=== PATIENT | male | born 1970 ===

== ENCOUNTER 2024-11-30 14:07 | Inpatient (IN) | payer MEDICAID, OTHER ==
[~2024-11-30] VITALS: Ht 180.3 cm; Wt 92.0 kg
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
[2024-11-30 15:00] LABS: Basophils # (auto) 0.1 10 ^3/uL (0-0.2); Eosinophils # (auto) 0.1 10 ^3/uL (0-0.8); Monocytes # (auto) 0.6 10 ^3/uL (0-1.3)
[2024-11-30 15:01] LABS: Basophils % (auto) 1.2 % (0.0-2.0); Eosinophils % (auto) 0.8 % (0.0-7.0); Hematocrit 41.2 % (41.0-53.0); Hemoglobin 13.3 g/dL (13.5-17.5); Lymphocytes # (auto) 0.9 10 ^3/uL (0.4-5.4); Lymphocytes % (auto) 12.3 % (10.0-50.0); Mean Corpuscular Hgb Conc. 32.4 g/dL (32.0-36.0); Mean Corpuscular Volume 77.2 fL (80.0-100.0); Monocytes % (auto) 7.9 % (0.0-12.0); Neutrophils # (auto) 5.9 10 ^3/uL (1.6-8.6); Neutrophils % (auto) 77.8 % (37.0-80.0); Nucleated Red Blood Cells % 0.1 %; Platelet Count (auto) 427 10^3/uL (140-450); Red Blood Cells 5.34 10^6/uL (4.5-5.90); Red Cell Distribution Width 17.6 % (11.8-14.3); White Blood Cell 7.5 10^3/uL (4.4-10.8)
[2024-11-30 15:02] VITALS: PULSE 79; RESP 20; O2SAT 99
[2024-11-30 15:11] LABS: Chloride 104 mmol/L (98-107); Sodium 137 mmol/L (136-145)
[2024-11-30 15:12] LABS: Anion Gap 13 (5-15)
[2024-11-30 15:13] LABS: Calcium 9.3 mg/dL (8.7-10.4)
[2024-11-30] MEDS: ONDANSETRON HCL 4 MG/2 ML VIAL IV ONE (15:16)
[2024-11-30] MEDS: SODIUM CHLORIDE 0.9% 1,000 ML IV ONE (15:16)
[2024-11-30 15:17] LABS: BUN/Creatinine Ratio 8.6 (10.0-20.0); Blood Urea Nitrogen 13 mg/dL (9-23)
--- NOTE | 2024-11-30 15:17 | ECG ---
[facility] Test Date: 2024-11-30 Test Time: 14:28:59 Pat Name: NILESH CORRALES Department: ED Room: [address] [place] [address] Gender: M Technical Recruiter: arcelia : 1970 Requested By: EMERGENCY EMERGENCY Order Number: [id number] Reading MD: Harrison Peterson Measurements Intervals [place] Rate: 89 P: 79 [place]: 146 QRS: 76 QRSD: 100 T: -19 QT: 350 QTc: 426 Interpretive Statements Sinus rhythm Borderline repolarization abnormality Electronically Signed On 12-02-2024 14:04:18 PDT by Harrison Peterson Please click the below link to view image of tracing.
[2024-11-30 15:19] LABS: Carbon Dioxide 20 mmol/L (20-31); Glucose 152 mg/dL (74-106)
--- NOTE | 2024-11-30 15:26 | DVH ---
EXAM: CT HEAD WITHOUT CONTRAST HISTORY: seizure COMPARISON: None TECHNIQUE: Noncontrast axial CT images of the head were performed. Sagittal and coronal reformatted i mages were obtained. This CT exam was performed using 1 or more of the following dose reduction techn iques: Automated exposure control, adjustment of the mA and/or kv according to patient size, or the u se of iterative reconstruction techniques. Radiation Dose: CTDI volume is 60.41 mGy. Dose-length product is 1188.76 mGy*cm FINDINGS: No intracranial hemorrhage, mass, midline shift, hydrocephalus, or evidence of acute large vessel inf arct. The partially-visualized paranasal sinuses are clear. The bilateral mastoid air cells and middl e ear spaces are clear. There are old fractures about the left facial bones, with postoperative acosta es fixation of the left orbital floor and left lateral orbit. Probable old bilateral nasal bone fract ures. The nasal septum is deviated to the right. No cranial fracture or scalp edema. IMPRESSION: 1. No acute intracranial process. 2. Old facial bone fractures and old postoperative changes left facial bone fixation.
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
[2024-11-30] MEDS: LORazepam 2MG/ML-1ML VIAL IV ONE (18:26)
[2024-11-30] MEDS: levETIRAcetam 1000 mg/100ml 200 ML IV ONE (18:26)
--- NOTE | 2024-11-30 18:39 | DVH ---
CHEST RADIOGRAPH Indication: seizure vs syncope Technique: Single frontal view of the chest was obtained Comparison: None FINDINGS: Lines and Tubes: None Lungs: No focal consolidation. Pleura: No effusion. No pneumothorax. Cardiomediastinal contours: Unremarkable Bones: No acute osseous abnormality. IMPRESSION: No acute cardiopulmonary disease.
[2024-11-30] MEDS ORDERED: ONDANSETRON HCL 4 MG/2 ML VIAL IV PRN (19:30)
[2024-11-30 20:18] LABS: Urine Bacteria None Seen /hpf (None Seen)
[2024-11-30 20:31] LABS: Urine Blood TRACE /uL (Negative); Urine Clarity Clear (Clear); Urine Color Light-Yellow (Yellow); Urine Mucus FEW (None Seen); Urine Protein, UAD 1+ (Negative); Urine Squamous Epithelial Cell FEW /hpf (<5); Urine Urobilinogen Normal (Negative); Urine WBC 4 /HPF (0-3)
[2024-11-30 21:09] LABS: Barbiturate Scree,Urine Neg (NEGATIVE); Benzodiazephine Screen, Urine Neg (NEGATIVE); Cannabinoid Screen, Urine Neg (NEGATIVE); Cocaine Screen, Urine Neg (NEGATIVE); Opiate Scree,Urine Neg (NEGATIVE); Phencyclidine Screen, Urine Neg (NEGATIVE)
[2024-11-30 21:10] LABS: Amphetamine Screen, Urine Neg (NEGATIVE)
[2024-11-30] MEDS: TAMSULOSIN HYDROCHLORIDE 0.4 MG CAP PO SCH (21:37)
[2024-11-30] MEDS: HYDROcodone-ACET 5/325MG TAB PO ONE (21:37)
[2024-11-30 22:52] VITALS: BP 145/89; PULSE 79; RESP 18; TEMP 97.8; O2SAT 97
[2024-11-30 23:15] VITALS: PULSE 79; RESP 18; O2SAT 97
--- NOTE | 2024-11-30 23:15 | DVHHP2 ---
History of Present Illness Reason for Visit: Seizure History of Present Illness 54-year-old male presents for evaluation of seizure activity. Patient is is at the bedside. She reports patient having a witnessed seizure lasting approximately 5-10 minutes. She reports patient biting his tongue and then his eyes rolled back. Patient is currently alert and oriented. He has been complaining of a headache for the past three days. Denies chest pain or palpitations. No other acute complaints. Past Medical History Hypertension and BPH Past Surgical History None Family History Noncontributory Smoke: No ALCOHOL: none Drugs: None Lives: with Family Review of Systems Review of Systems Review of systems are currently negative otherwise addressed in HPI. Allergies: Coded Allergies: NO KNOWN ALLERGIES (Unverified , 11/30/24) Medications Current Medications Medications Dose Ordered Sig/Tanya Route Start Time Stop Time Status Last Admin Dose Admin Losartan Potassium 50 mg DAILY PO 12/01/24 10:00 Tamsulosin HCl 0.4 mg QPM PO 11/30/24 19:42 11/30/24 21:37 0.4 MG Ondansetron HCl 4 mg Q4HP PRN IV 11/30/24 19:30 Acetaminophen 650 mg Q6HP PRN PO 11/30/24 19:30 Lorazepam 1 mg Q5MINP PRN IV 11/30/24 20:00 Exam Vital Signs Vital Signs Date Time Temp Pulse Resp B/P (MAP) Pulse Ox O2 Delivery O2 Flow Rate FiO2 11/30/24 22:00 79 13 134/80 (98) 100 11/30/24 19:20 98.9 98.9 11/30/24 15:02 Room Air* 0 21 Exam Gen: 54-year-old male in no apparent distress. Skin: Warm, dry, normal color and texture, no rash. HEENT: Normocephalic atraumatic, mucous membranes moist and pink. Neck: Cervical and supraclavicular nodes normal without enlargement, trachea is midline, thyroid gland is normal without masses. Pulmonary: Clear to auscultation and percussion bilaterally. Cardiac: Regular rate and rhythm. No murmur Abdomen: Soft, nontender, nondistended, bowel sounds present all 4 quadrants, no guarding, no rigidity, no organomegaly. Extremities: No cyanosis, clubbing, no edema Neuro: Cranial nerves II through XII grossly intact, normal affect and speech, no focal motor deficits. Labs/Xrays ORDERING PHYSICIAN: ROXANNE MORILLO MD PROCEDURE(s): HWOCT - HEAD WITHOUT CONTRAST REASON: seizure ORDER NUMBER(s): [id number], ACCESSION NUMBER(s): [id number] EXAM: CT HEAD WITHOUT CONTRAST HISTORY: seizure COMPARISON: None TECHNIQUE: Noncontrast axial CT images of the head were performed. Sagittal and coronal reformatted images were obtained. This CT exam was performed using 1 or more of the following dose reduction techniques: Automated exposure control, adjustment of the mA and/or kv according to patient size, or the use of iterative reconstruction techniques. Radiation Dose: CTDI volume is 60.41 mGy. Dose-length product is 1188.76 mGy*cm FINDINGS: No intracranial hemorrhage, mass, midline shift, hydrocephalus, or evidence of acute large vessel infarct. The partially-visualized paranasal sinuses are clear. The bilateral mastoid air cells and middle ear spaces are clear. There are old fractures about the left facial bones, with postoperative changes fixation of the left orbital floor and left lateral orbit. Probable old bilateral nasal bone fractures. The nasal septum is deviated to the right. No cranial fracture or scalp edema. IMPRESSION: 1. No acute intracranial process. 2. Old facial bone fractures and old postoperative changes left facial bone fix ation. RING PHYSICIAN: NICOLAS CASTRO MD PROCEDURE(s): CXRP - CHEST PORTABLE REASON: seizure vs syncope ORDER NUMBER(s): [id number], ACCESSION NUMBER(s): [id number] CHEST RADIOGRAPH Indication: seizure vs syncope Technique: Single frontal view of the chest was obtained Comparison: None FINDINGS: Lines and Tubes: None Lungs: No focal consolidation. Pleura: No effusion. No pneumothorax. Cardiomediastinal contours: Unremarkable Bones: No acute osseous abnormality. IMPRESSION: No acute cardiopulmonary disease. Labs Test 11/30/24 20:11 11/30/24 14:49 Range/Units Urine Color Light-yellow Yellow Urine Clarity Clear Clear Urine pH 6.0 5.0-9.0 Urine Specific [place] 1.020 1.001-1.035 Urine Protein 1+ H Negative Urine Ketones Trace Negative Urine Blood Trace H Negative /uL Urine Nitrite Negative Negative Urine Bilirubin Negative Negative Urine Urobilinogen Normal Negative mg/dL Urine Leukocyte Esterase Negative Negative /uL Urine RBC 1 0 - 3 /hpf Urine Microscopic WBC 4 H 0-3 /HPF Urine Squamous Epithelial Cells Few <5 /hpf Urine Bacteria None seen None Seen /hpf Urine Mucus Few None Seen Urine Glucose Normal Normal mg/dL Urine Opiates Screen Neg NEGATIVE Urine Fentanyl Screen Neg NEGATIVE Urine Barbiturates Screen Neg NEGATIVE Urine Phencyclidine Screen Neg NEGATIVE Urine Amphetamines Screen Neg NEGATIVE Urine Benzodiazepines Screen Neg NEGATIVE Urine Cocaine Screen Neg NEGATIVE Urine Cannabinoids Screen Neg NEGATIVE White Blood Count 7.5 4.4-10.8 10^3/uL Red Blood Count 5.34 4.5-5.90 10^6/uL Hemoglobin 13.3 L 13.5-17.5 g/dL Hematocrit 41.2 41.0-53.0 % Mean Corpuscular Volume 77.2 L 80.0-100.0 fL Mean Corpuscular Hemoglobin 25.0 L 28.0-32.0 pg Mean Corpuscular Hemoglobin Concent 32.4 32.0-36.0 g/dL Red Cell Distribution Width 17.6 H 11.8-14.3 % Platelet Count 427 140-450 10^3/uL Mean Platelet Volume 6.9 6.9-10.8 fL Neutrophils (%) (Auto) 77.8 37.0-80.0 % Lymphocytes (%) (Auto) 12.3 10.0-50.0 % Monocytes (%) (Auto) 7.9 0.0-12.0 % Eosinophils (%) (Auto) 0.8 0.0-7.0 % Basophils (%) (Auto) 1.2 0.0-2.0 % Neutrophils # (Auto) 5.9 1.6-8.6 10 ^3/uL Lymphocytes # (Auto) 0.9 0.4-5.4 10 ^3/uL Monocytes # (Auto) 0.6 0-1.3 10 ^3/uL Eosinophils # (Auto) 0.1 0-0.8 10 ^3/uL Basophils # (Auto) 0.1 0-0.2 10 ^3/uL Nucleated Red Blood Cells 0.1 % Sodium Level 137 136-145 mmol/L Potassium Level 4.0 3.5-5.1 mmol/L Chloride Level 104 98-107 mmol/L Carbon Dioxide Level 20 20-31 mmol/L Anion Gap 13 5-15 Blood Urea Nitrogen 13 9-23 mg/dL Creatinine 1.51 H 0.700-1.30 mg/dL Glomerular Filtration Rate Calc 55 >90 mL/min BUN/Creatinine Ratio 8.6 L 10.0-20.0 Serum Glucose 152 H 74-106 mg/dL Calcium Level 9.3 8.7-10.4 mg/dL Troponin I High Sensitivity 19 </=54 ng/L Thyroid Stimulating Hormone (TSH) 2.11 0.55-4.78 uIU/mL Assessment/Plan Assessment/Plan Assessment Seizure activity, new onset Acute kidney injury Hypertension Plan Admit the patient to [facility] to the hospitalist Nephrology consultation Seizure precautions Resume home medications Continue treatment per orders. Plan discussed with: Patient My Orders Orders - DELORES TEE Procedure Category Date Status Time * Neurology Consult CONS 11/30/24 Transmitted 19:30 Seizure Precautions ZANDER 11/30/[address] 19:30 Losartan Tablet PHA 12/01/24 In Process (Cozaar Tablet) 10:00 Basic Metabolic Panel LAB 12/01/24 Logged 04:00 Admit ADMIT 11/30/24 Transmitted 19:30 Ondansetron Hcl PHA 11/30/24 In Process (Zofran) 19:30 Condition: Stable ZANDER 11/30/24 In Process 19:30 Acetaminophen Tablet PHA 11/30/24 In Process (Tylenol Tablet) 19:30 Bedrest With Bathroom ZANDER 11/30/24 In Process Privileg 19:30 Tamsulosin PHA 11/30/24 In Process Hydrochloride (Flomax) 19:42 Lorazepam 2mg/Ml Inj PHA 11/30/24 In Process (Ativan Inj) 20:00 Date of Service: Nov 30, 2024 Billing Provider: DELORES TEE Common Visit Codes: [id number] INP/OBS CARE (HIGH) DELORES TEE Nov 30, 2024 23:15
[2024-11-30] MEDS ORDERED: FAMO40TA7 PO (23:35)
[2024-11-30] MEDS ORDERED: [UNRECOGNIZED DRUG - CODE] TOP (23:35)
[2024-11-30] MEDS ORDERED: NORT10CA PO (23:35)
[2024-11-30] MEDS ORDERED: PANT40T PO (23:35)
[2024-11-30] MEDS ORDERED: LOSA-534 PO (23:35)
[2024-12-01] VITALS (42 sets, daily range): BP systolic 81–226; BP diastolic 48–164; PULSE 61–132; RESP 17–32; TEMP 97.5–98.6; O2SAT 96–100
[2024-12-01] MEDS: ACETAMINOPHEN 325 MG TAB PO PRN (04:30)
[2024-12-01 07:21] LABS: Chloride 103 mmol/L (98-107); Potassium 3.7 mmol/L (3.5-5.1); Sodium 139 mmol/L (136-145)
[2024-12-01 07:22] LABS: Anion Gap 10 (5-15); Calcium 9.2 mg/dL (8.7-10.4); Carbon Dioxide 26 mmol/L (20-31)
[2024-12-01 07:27] LABS: Glucose 77 mg/dL (74-106)
[2024-12-01 07:57] LABS: BUN/Creatinine Ratio 7.6 (10.0-20.0)
[2024-12-01] MEDS: LOSARTAN POTASSIUM 50 MG TAB PO SCH (07:57)
[2024-12-01 08:04] LABS: Blood Urea Nitrogen 10 mg/dL (9-23)
--- NOTE | 2024-12-01 09:28 | DVH ---
EXAMINATION: MRI BRAIN HEAD WO CONTRAST INDICATION: seizure COMPARISON: CT scan of the head dated 11/30/2024 TECHNIQUE: Multiplanar, multisequence magnetic resonance imaging of the brain was performed without the use of i ntravenous contrast. FINDINGS: No evidence of acute or remote infarct. No intracranial hemorrhage. No mass effect. There is periventricular/deep white matter T2/FLAIR hyperintensity is nonspecific, but most commonly associated with chronic microvascular disease. The ventricles and sulci are normal in size for age. Clear basal cisterns. Flow voids in the major intracranial vessels are maintained. No abnormality of the orbits. Paranasal sinuses and mastoid air cells are clear. No abnormality of the visualized osseous structures and extracranial soft tissues. IMPRESSION: 1. No acute infarct, intracranial hemorrhage, mass effect, or hydrocephalus.
[2024-12-01] MEDS ORDERED: HYDROcodone-ACET 10/325MG TAB PO PRN (11:30)
[2024-12-01] MEDS ORDERED: CHLO50TA PO (12:20)
[2024-12-01] MEDS ORDERED: TAMS0.4C39 PO (12:21)
[2024-12-01] MEDS: HYDROcodone-ACET 10/325MG TAB PO PRN (12:38)
[2024-12-01] MEDS: LORazepam 2MG/ML-1ML VIAL IV PRN (14:20)
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
--- NOTE | 2024-12-01 14:53 | DVH ---
EXAM: CT STROKE CTH INDICATION: sezuire TECHNIQUE: CT of the head without intravenous contrast. Radiation Dose Information: CT Dose: CTDI volume is 68.59 mGy. Dose-length product is 1351.29 mGy*cm The dose indicators for CT are the volume Computed Tomography (CT) Dose Index (CTDIvol) and the Dose Length Product (DLP), and are measured in units of mGy and mGy-cm, respectively. These indicators are not patient dose, but values generated from the CT scanner acquisition factors. The report includes radiation exposure data for exposures received during this examination. COMPARISON: CT HEAD WITHOUT CONTRAST on DOS: 11/30/24 FINDINGS: There is no evidence of acute intracranial hemorrhage, extra-axial collection, mass effect, midline s hift, herniation or hydrocephalus. The ventricles, sulci and cisterns are age appropriate. The nguyen-white differentiation is intact. Patchy periventricular and subcortical white matter hypoattenuation is nonspecific but may be related to small vessel ischemic disease. The visualized paranasal sinuses and mastoid air cells are clear. The surrounding soft tissues and osseous structures are unremarkable. IMPRESSION: No acute intracranial abnormality.
[2024-12-01 15:04] LABS: Basophils # (auto) 0.1 10 ^3/uL (0-0.2); Eosinophils # (auto) 0.1 10 ^3/uL (0-0.8); Eosinophils % (auto) 0.8 % (0.0-7.0); Hematocrit 40.7 % (41.0-53.0); Hemoglobin 12.9 g/dL (13.5-17.5); Lymphocytes # (auto) 0.9 10 ^3/uL (0.4-5.4); Lymphocytes % (auto) 13.1 % (10.0-50.0); Mean Corpuscular Hemoglobin 24.9 pg (28.0-32.0); Mean Corpuscular Hgb Conc. 31.6 g/dL (32.0-36.0); Mean Corpuscular Volume 78.8 fL (80.0-100.0); Monocytes # (auto) 0.7 10 ^3/uL (0-1.3); Monocytes % (auto) 9.6 % (0.0-12.0); Neutrophils # (auto) 5.4 10 ^3/uL (1.6-8.6); Neutrophils % (auto) 75.5 % (37.0-80.0); Nucleated Red Blood Cells % 0.1 %; Platelet Count (auto) 387 10^3/uL (140-450); Red Blood Cells 5.17 10^6/uL (4.5-5.90); Red Cell Distribution Width 17.8 % (11.8-14.3); White Blood Cell 7.2 10^3/uL (4.4-10.8)
[2024-12-01] MEDS: IOHEXOL 350 MG/ML 100ML IJ ONE ×2 (15:08→17:48)
[2024-12-01 15:13] LABS: Chloride 104 mmol/L (98-107); Potassium 3.9 mmol/L (3.5-5.1); Sodium 138 mmol/L (136-145)
[2024-12-01 15:14] LABS: Anion Gap 16 (5-15)
[2024-12-01 15:15] LABS: Calcium 9.4 mg/dL (8.7-10.4)
[2024-12-01] MEDS ORDERED: levETIRAcetam 500 mg/100ml 100 ML IV ONE (15:15)
[2024-12-01 15:18] LABS: INR 1.01 (0.9-1.15); Prothrombin Time 10.7 sec (9.3-11.8)
[2024-12-01 15:19] LABS: BUN/Creatinine Ratio 7.2 (10.0-20.0); Blood Urea Nitrogen 11 mg/dL (9-23)
[2024-12-01 15:25] LABS: Carbon Dioxide 18 mmol/L (20-31); Glucose 119 mg/dL (74-106)
[2024-12-01] MEDS: fentaNYL Drip 2500mCg/250mlNS 250 ML IV SCH (15:26)
[2024-12-01] MEDS: fentaNYL Drip 2500mCg/250mlNS 250 ML IV ONE (15:26)
[2024-12-01] MEDS: MIDAZOLAM DRIP 50 mg/50mL 50 ML IV SCH (15:27)
[2024-12-01] MEDS: MIDAZOLAM DRIP 50 mg/50mL 50 ML IV ONE (15:27)
[2024-12-01] MEDS: ETOMIDATE (2MG/ML) 20ML VIAL IV ONE (15:33)
[2024-12-01] MEDS: ROCURONIUM 10MG/ML 10ML VIAL IV ONE (15:34)
[2024-12-01] MEDS: levETIRAcetam 1000 mg/100ml 100 ML IV ONE ×2 (15:41→15:56)
[2024-12-01] MEDS: PROPOFOL 100 ML IV SCH (16:37)
[2024-12-01] MEDS: PROPOFOL 100 ML IV ONE (16:37)
--- NOTE | 2024-12-01 17:49 | DVH ---
EXAM: XR Chest, 1 View CLINICAL INDICATION: INTUBATED AND CENTRAL LINE PLACEMENT TECHNIQUE: Frontal view of the chest. COMPARISON: XY CHEST PORTABLE on DOS: 11/30/24 FINDINGS: LUNGS AND PLEURAL SPACES: Pulmonary venous congestion. No consolidation. No pneumothorax. HEART: Unremarkable. No cardiomegaly. MEDIASTINUM: Unremarkable. Normal mediastinal contour. BONES/JOINTS: Unremarkable. No acute fracture. TUBES, LINES AND DEVICES: The endotracheal tube (ETT) is in satisfactory position. Right internal jugular central venous catheter tip in the superior vena cava. Enteric tube tip in the stomach. OTHER FINDINGS: . .. IMPRESSION: Pulmonary venous congestion.
[2024-12-01 17:58] LABS: Urine Bacteria None Seen /hpf (None Seen)
--- NOTE | 2024-12-01 18:01 | DVHSR ---
APPROVED REPORT EXAM: Two-dimensional and M-mode echocardiogram with Doppler and color Doppler. Blood Pressure: 133/73 mmHg INDICATION Evaluate cardiac function RISK FACTORS Height: 6'0", Weight: 220 DIMENSIONS LVDd4.6 (3.8-5.7cm)LA (2D)3.1 (1.9-4.0cm)Aortic Root3.7 (2.0-3.7cm) LVDs3.1 (2.5-4.0cm)LA (MM) (1.9-4.0cm)Aortic Cusp Exc2.0 (1.5-2.0cm) EF (%) 60.0 (55-70%)Rt. Atrium4.0 (1.9-4.0cm)Asc. Aorta cm IVSd1.2 (0.7-1.1cm)RV (D)3.7 (1.8-2.4cm) PWd1.1 (0.7-1.1cm) Mitral Valve MitralMitral Stenosis E wave0.73m/sMV Mean GR.mmHg A wave0.81m/sMV Peak GR.mmHg E/A ratio0.92D MVAcm2 DECEL [id number] 1/2 Timems Aortic Valve Aortic ValveAortic Stenosis V11.34m/Leonel Mean GR.6mmHg V21.60m/Leonel Peak GR.10mmHg LVOT Diameter2.3 (1.8-2.4cm)Doppler AVA3.48cm2 Pulmonic Valve V21.09m/s Tricuspid Valve TR Velocity3.30m/s [id number] Conclusion Sinus rhythm. Concentric LVH with aortic root enlargement. Mild RV enlargement. Right atrial enlargement. Valves are normal. EF of 65% with normal RV function. Mild TR. No pericardial effusion masses or vegetations.
[2024-12-01 18:22] LABS: Urine Blood TRACE /uL (Negative); Urine Clarity Clear (Clear); Urine Color Light-Yellow (Yellow); Urine Mucus FEW (None Seen); Urine Protein, UAD 1+ (Negative); Urine Specific Gravity 1.019 (1.001-1.035); Urine Squamous Epithelial Cell None Seen /hpf (<5); Urine Urobilinogen Normal (Negative); Urine WBC 2 /HPF (0-3); Urine pH 5.5 (5.0-9.0)
[2024-12-01] MEDS: SODIUM CHLORIDE 0.9% 500 ML IV ONE (18:40)
--- NOTE | 2024-12-01 18:49 | DVH ---
Procedure: CT ANGIO HEAD/Neck HISTORY: R/O STROKE Exam Date:12/01/2024 05:48 PM TECHNIQUE: CTA head without and with intravenous contrast. CTA neck with intravenous contrast. 3D [place] postprocessing was performed and images were used for interpretation and reporting. Radiation Dose : CT Dose: CTDI volume is 28.47 mGy. Dose-length product is 902.66 mGy*cm FINDINGS: CTA head: There is normal enhancement of the visualized distal internal carotid, anterior and middle cerebral a rteries. There is a normal anterior communicating artery complex. There are bilateral posterior commu nicating arteries. The vertebral, basilar, cerebellar and posterior cerebral arteries are within norm al limits. The early parenchymal enhancement is grossly unremarkable. The visualized intracranial mimi ous structures are grossly unremarkable. CTA neck: The visualized thoracic aortic arch and proximal great vessels are unremarkable. The left common, int ernal and external carotid arteries are within normal limits. The right common, internal and external carotid arteries are within normal limits. The cervical segments of the right and left vertebral art eries are within normal limits. The limited visualized lung apices are clear. The surrounding soft ti ssues and osseous structures are otherwise unremarkable. IMPRESSION: No evidence of hemodynamically significant intracranial stenosis, proximal occlusion or aneurysm. No evidence of hemodynamically significant cervical stenosis or dissection. CAROTID STENOSIS REFERENCE Distal internal carotid artery diameter as the denominator for stenosis measurement: MILD = <50% stenosis. MODERATE = 50-69% stenosis. SEVERE = 70-89% stenosis. CRITICAL = 90-99% stenosis. OCCLUDED = 100% stenosis. All CT scans at this medical facility are performed using dose modulation techniques as appropriate t o a performed exam including the following: Automated exposure control was utilized; adjustment of th e MA and/or KV according to patient size; and use of iterative reconstruction technique.
--- NOTE | 2024-12-01 18:51 | RESUS ---
CODE ASSIST ASSESSSMENT Initial Information Code Assist Date: Dec 01, 2024 Code Assist Time: 15:07 Location of Arrest: [facility] Room [facility] Provider Name Trisha Duvall (resident) Time Notified: 15:07 Crash Cart Opened and Supplies: Yes Situation Staff concerned/worried, speci: Seizures Situation comment: patient noted to have multiple episodes of uncontrollable generalized body tremors. patient remained alert and awake during episodes then began to develop left sided weakness/ numbness/ facial droop and left sided visual disturbances. Code assist turned to code stroke. upon attempt to complete code stroke protocols patient again developed uncontrolled generalized tremors, delayed response to verbal commands and becoming diaphoretic. Patient noted to have episodes of lethargy and unresponsiveness. Verbal order received from Dr Montero for intubation and transfer to ICU Background Background: new onset seizures Assessment Temperature (Fahrenheit): 98.3 Blood Pressure Systolic: 177 Blood Pressure Diastolic: 97 Respiratory Rate: 28 O2 Sat by Pulse Oximetry: 98 Recommendations/Interventions Medications and Responses : ADULT Medications Given: Ativan 1 mg IV MRx1 Route of Administration: IV Medication Comment: total of 4 mg ativan iv given during the duration of code assist in attempt to stop tremors/ prior to intubation EKG Rhythm: Sinus Tachycardia Other Interventions patient intubated for airway protection Outcome Outcome: Transfer to ICU Team Members Team Members Sarah Hollis Dr, RN, RN, RN, RN, RN Dec 01, 2024 18:51
[2024-12-01] MEDS: NOREPINEPHRINE 8 MG/250ML KIT 250 ML IV SCH (19:00)
[2024-12-01 19:11] LABS: Base Excess 0.3 mmol/L (-2.0-3.0)
[2024-12-01] MEDS ORDERED: NOREPINEPHRINE 8 MG/250ML KIT 250 ML IV SCH (19:45)
--- NOTE | 2024-12-01 20:27 | DVHPN2 ---
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 Anemia microcytic hypochromic HEIKE VMN vs rhabdo ISO seizure Low concern for meningoencephalitis c/w mechanical ventilation c/w sedation, target RAAS -3, no observed GTC or myoclonus, sedation with versed and propofol c/w pressor maintain MAP >70 ISO heavy seziure suppressing sedation EEG Neuro consult If appropriate, considering transfer for cEEG keppra load followed by maintenance lactate, CK trend cr iron panel blood culture, ESR if febrile, considering LP line IJ TLC folley NGT condition critical prognosis poor diet hold dvt ppx lovenox gi ppx protonix critical care time 90 minutes Plan discussed with: Other My Orders Orders - CLAUDETTE EATON MD Procedure Category Date Status Time Propofol (Diprivan) PHA 12/01/24 In Process 16:45 Midazolam Drip 50 PHA 12/01/24 In Process Mg/50ml (Versed Drip 5 16:45 Fentanyl Drip PHA 12/01/24 In Process 2500mcg/250mlns 16:45 Rass Sedation Scale ZANDER 12/01/24 In Process 16:45 Eeg Awake/Sleep/Act EEG 12/01/24 Transmitted 16:45 Norepinephrine 8 PHA 12/01/24 In Process Mg/250ml Kit 20:15 Enoxaparin Sodium PHA 12/02/24 Logged (Lovenox) 10:00 Levetiracetam 500 PHA 12/01/24 In Process Mg/100ml (Levetiraceta 22:00 Eeg Awake/Sleep/Act EEG 12/01/24 Transmitted 20:13 Basic Metabolic Panel LAB 12/02/24 Verified 04:00 Complete Blood Count LAB 12/02/24 Verified 04:00 Magnesium LAB 12/02/24 Verified 04:00 Phosphorus LAB 12/02/24 Verified 04:00 Lactic Acid W/ Reflex LAB 12/02/24 Verified Order 04:00 Creatine Kinase LAB 12/02/24 Verified 04:00 Pantoprazole PHA 12/01/24 In Process (Protonix) 20:16 Date of Service: Dec 01, 2024 Billing Provider: CLAUDETTE EATON MD Common Visit Codes: [id number] CARE 30-74 MIN, [id number] CARE-EACH +30MIN CLAUDETTE EATON MD Dec 01, 2024 20:27
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
[2024-12-01 21:08] LABS: % Iron Saturation 4.4 % (20-55)
--- NOTE | 2024-12-01 21:13 | DVH ---
INDICATION: ETT PLACEMENT TECHNIQUE: Frontal view of the chest. COMPARISON: XY CHEST PORTABLE on DOS: 12/01/24, XY CHEST PORTABLE on DOS: 11/30/24 FINDINGS: ET tube 7cm from katia . Right CVC tip in svc. NG tube in stomach. The heart and mediastinal conto urs are grossly unremarkable. There is no evidence of pleural disease. The lungs are clear. The b bridger structures of the chest are intact without fracture. IMPRESSION: 1. No evidence of acute disease.
[2024-12-01] MEDS: PANTOPRAZOLE 40 MG/10 ML VIAL INJ IV SCH (21:41)
[2024-12-01] MEDS: ENOXAPARIN SOD 40 MG/0.4 ML SYRINGE SC SCH (21:41)
[2024-12-01] MEDS: cefTRIAXone 1GM/50ML D5W 50 ML IV ONE (21:43)
[2024-12-01] MEDS ORDERED: LORazepam 2MG/ML-1ML VIAL IV PRN (21:45)
[2024-12-01] MEDS ORDERED: levETIRAcetam 500 mg/100ml 100 ML IV SCH (22:00)
--- NOTE | 2024-12-01 22:08 | DVHNC2 ---
Intubation Indication: Airway Protection Prep: Preoxygenation Pretreated with: Analgesia, Sedation Medicated with: Other (Etomidate 20, Rocuronium 100) Intubation Approach: Orotracheal Intubation size: cm (8.0) Informed consent obtained: Yes Risks/benefits/alt described: Yes Notes Supervised by Dr. Eaton Date of Service: Dec 01, 2024 Billing Provider: CLAUDETTE EATON MD Common Visit Codes: PROCEDURE ONLY Procedure Codes: [id number] KOLE PADGETT RESIDENT Dec 01, 2024 22:07 CLAUDETTE EATON MD Dec 03, 2024 11:17
--- NOTE | 2024-12-01 22:10 | DVHNC2 ---
Central Line Recorder of insertion practice: Metal Bed Assembler Occupation of inseam leveler: Attending Physician, Name of inseam leveler (Dr. Duvall) Indication: Hypotension, Inability to obtain IV Room prepared for procedure: Yes Metal Bed Assembler performed hand hygien: Yes Maximal sterile barrier precau: Mask/Eye shield, Sterile gown, Cap, Sterlie gloves, Large sterlie drape Skin Preparation: Chlorhexidine gluconate, Providine iodine, Alcohol Skin preparation completely dr: Yes Insertion site: Right, Internal jugular Central line catheter type: [id number] dialysis Number of lumens: 3 Central line exchanged over a: No Antiseptic ointment applied to: No Post Assessment: Chest X-Ray, Proper placement, No Pneumothorax Informed consent obtained: Yes Risks/benefits/alt described: Yes Notes Supervised by Dr. Calle Date of Service: Dec 01, 2024 Billing Provider: DERICK MOBLEY MD Common Visit Codes: PROCEDURE ONLY KOLE PADGETT RESIDENT Dec 01, 2024 22:10
[2024-12-01] MEDS: AZITHROMYCIN 500MG/ 250ML 250 ML IV ONE (22:34)
[2024-12-02] VITALS (117 sets, daily range): BP systolic 90–124; BP diastolic 48–79; PULSE 51–94; RESP 12–22; TEMP 98.4–100.4; O2SAT 98–100
[2024-12-02 03:46] LABS: Basophils # (auto) 0.1 10 ^3/uL (0-0.2); Eosinophils # (auto) 0.1 10 ^3/uL (0-0.8); Monocytes # (auto) 0.8 10 ^3/uL (0-1.3); Nucleated Red Blood Cells % 0.1 %
[2024-12-02 03:47] LABS: Eosinophils % (auto) 1.2 % (0.0-7.0); Hematocrit 35.7 % (41.0-53.0); Hemoglobin 11.6 g/dL (13.5-17.5); Lymphocytes % (auto) 12.6 % (10.0-50.0); Mean Corpuscular Hgb Conc. 32.4 g/dL (32.0-36.0); Mean Corpuscular Volume 77.3 fL (80.0-100.0); Monocytes % (auto) 9.7 % (0.0-12.0); Neutrophils # (auto) 6.2 10 ^3/uL (1.6-8.6); Neutrophils % (auto) 75.5 % (37.0-80.0); Platelet Count (auto) 365 10^3/uL (140-450); Red Blood Cells 4.62 10^6/uL (4.5-5.90); Red Cell Distribution Width 17.3 % (11.8-14.3); White Blood Cell 8.2 10^3/uL (4.4-10.8)
[2024-12-02 03:49] LABS: Anion Gap 5 (5-15); Carbon Dioxide 28 mmol/L (20-31); Potassium 4.3 mmol/L (3.5-5.1); Sodium 140 mmol/L (136-145)
[2024-12-02 03:50] LABS: Calcium 8.7 mg/dL (8.7-10.4)
[2024-12-02 03:54] LABS: Glucose 94 mg/dL (74-106)
[2024-12-02 03:55] LABS: BUN/Creatinine Ratio 6.7 (10.0-20.0); Blood Urea Nitrogen 10 mg/dL (9-23); Magnesium 2.1 mg/dL (1.6-2.6)
[2024-12-02 03:57] LABS: Phosphorus 4.4 mg/dL (2.4-5.1)
[2024-12-02 04:13] LABS: Chloride 107 mmol/L (98-107); Creatine Kinase IFCC 567 U/L (46-171)
--- NOTE | 2024-12-02 05:34 | DVH ---
EXAM: XR Chest, 1 View CLINICAL INDICATION: INTUBATED TECHNIQUE: Frontal view of the chest. COMPARISON: XY CHEST PORTABLE on DOS: 12/01/24, XY CHEST PORTABLE on DOS: 12/01/24, XY CHEST PORTABLE on DOS: 11/30/24 FINDINGS: LUNGS AND PLEURAL SPACES: Bibasilar atelectasis or pneumonia. No pneumothorax. HEART: Unremarkable. No cardiomegaly. MEDIASTINUM: Unremarkable. Normal mediastinal contour. BONES/JOINTS: Unremarkable. No acute fracture. TUBES, LINES AND DEVICES: Stable tubes and lines. OTHER FINDINGS: . .. IMPRESSION: Bibasilar atelectasis or pneumonia.
[2024-12-02 07:15] LABS: Base Excess -1.9 mmol/L (-2.0-3.0)
--- NOTE | 2024-12-02 09:04 | DVHPN2 ---
Progress Note - Dictate Date Seen: Dec 02, 2024 Medical Necessity Reason Pt with a Central, PICC or Fol: Yes The following are medically ne: Central Line, Borges Catheter Subjective Mr. Kalyn Carmona is a 54 years old right-handed gentleman with a history of hypertension, he came to the [facility] on 11/30/2024 with a chief company of headache and seizure activity. I have seen and examined the patient, I have discussed with his nurse, and primary care team, he remained intubated, nonresponsiveness, but no seizure or seizure-like activity reported overnight Fentanyl 125 mcg/hour, Versed 6 mg/hour, levo 6 mcg/minute UDS, 11/30/2024: Negative Plasma alcohol, 12/01/2024: 3.5 Urinalysis, 12/01/2024: WBC: 2, urine leukocyte esterase: Negative ABG, 12/01/2024 1900: Unremarkable WBC/HB/PLT/MCV, 12/01/2024: 7.2/12.9/387/78.8 BUN/CR, 12/01/2024: 11/1.53 Prolactin, 12/01/2024 14:55: 29.71 reported he was on testosterone replacement treatment and he had high testosterone level in the recent blood tests Chest x-ray, 12/01/2024 17:01: Pulmonary venous congestion. (The endotracheal tube (ETT) is in satisfactory position) MRI head, 12/01/2024: No acute infarct, intracranial hemorrhage, mass effect, or hydrocephalus (No evidence of acute or remote infarct) vital signs Vital Sign Date Time Temp Pulse Resp B/P (MAP) Pulse Ox O2 Delivery O2 Flow Rate FiO2 12/02/24 07:15 57 18 117/64 (81) 100 30 12/02/24 06:45 98.6 209.5 12/02/24 06:40 Mechanical Ventilator+ 12/01/24 07:30 0 Total Intake and Output 12/01/24 12/01/24 12/02/24 15:00 23:00 07:00 Intake Total 386.170 ml 278.418 ml Output Total 250 ml 350 ml Balance 136.170 ml -71.582 ml medications Current Medications Medications Dose Ordered Sig/Tanya Route Start Time Stop Time Status Last Admin Dose Admin Tamsulosin HCl 0.4 mg QPM PO 11/30/24 19:42 12/01/24 20:09 0.4 MG Propofol 100 ml @ 2.778 mls/ hr Q24H IV 12/01/24 16:45 12/01/24 16:37 2.778 MLS/HR Midazolam HCl 50 ml @ 1 mls/hr Q24H IV 12/01/24 16:45 12/02/24 00:56 9 MLS/HR Fentanyl Citrate 250 ml @ 2.5 mls/hr Q24H IV 12/01/24 16:45 12/02/24 00:58 17.5 MLS/HR Norepinephrine Bitartrate 250 ml @ 3.75 mls/hr Q24H IV 12/01/24 19:45 UNV Pantoprazole Sodium 40 mg DAILY IV 12/01/24 20:16 12/01/24 21:41 40 MG Norepinephrine Bitartrate 250 ml @ 3.75 mls/hr Q24H IV 12/01/24 20:15 Enoxaparin Sodium 40 mg DAILY@1800 SC 12/01/24 20:19 12/01/24 21:41 40 MG Ceftriaxone Sodium 50 ml @ 100 mls/hr DAILY@09 IV 12/02/24 09:00 Azithromycin 250 ml @ 125 mls/hr DAILY@2200 IV 12/02/24 22:00 Lorazepam 1 mg Q5MINP PRN IV 12/01/24 21:45 objective The patient is well-nourished and well-developed with no distress. The patient is intubated MENTAL STATUS: Not responsive to the surroundings, CRANIAL NERVES: Pupils are equal, round and nonreactive, pinpoint.There are weak corneal reflexes and doll's eyes phenomenon. No signs of facial weakness. There are no gagging or coughing reflexes SENSATION: No responses to pain stimuli. MOTOR: Normal tone in the upper and lower extremity. Normal muscle bulk. No fasciculations. No spontaneous movement. REFLEXES: Deep tendon reflexes are symmetrical. No pathological reflexes. CEREBELLAR/COORDINATION: Deferred GAIT/STATION: deferred. laboratory and microbiology Laboratory Tests 12/02/24 03:20 Test 12/02/24 03:20 Range/Units Serum Glucose 94 74-106 mg/dL Problem List New onset grand mal seizure, status epileptic seizure with atypical features/features suggestive of psychogenic seizure Acute respiratory failure Left-sided weakness, MR brain showed no evidence of stroke Elevated testosterone level (overdosing) Assessment/Plan Monitoring Supportive treatment Telemetry Follow up lab tests EEG Stabilize vitals/pressor drip Respiratory support/vent management Discontinue Keppra Preventive seizure medication is not indicated Ativan for seizure breakthrough Wean off sedation as tolerated DVT prophylaxis/SCD GI prophylaxis/Protonix More recommendation per clinical course This medical document was created using an electronic medical record system with [employer]ak[employer] dictation system. Although this document has been carefully reviewed, there may still be some phonetic and typographical errors. These areas are purely typographical due to imperfections of the software programs, and do not reflect any compromise in the patient's medical care Prognosis guarded Plan discussed with: Other Critical Care Time(min): 35 KOBY ANDERSON MD Dec 02, 2024 09:04
[2024-12-02] MEDS: cefTRIAXone 1GM/50ML D5W 50 ML IV SCH (09:58)
[2024-12-02] MEDS: SODIUM CHLORIDE 0.9% 1,000 ML IV SCH (11:02)
--- NOTE | 2024-12-02 11:14 | DVHPN2 ---
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 seen by me today during rounds, on levo. pending EEG. high gap, low bicarb, high ck and high prolactin post intubation point towards seizure activity. EEG today, seen by neuro. 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 Anemia microcytic hypochromic HEIKE VMN vs rhabdo ISO seizure Low concern for meningoencephalitis c/w mechanical ventilation c/w sedation, target RAAS -3, no observed GTC or myoclonus, sedation with versed and propofol c/w pressor maintain MAP >70 ISO heavy seziure suppressing sedation EEG Neuro consult If appropriate, considering transfer for cEEG keppra load followed by maintenance lactate, CK trend cr iron panel blood culture, ESR if febrile, considering LP line IJ TLC folley NGT condition critical prognosis poor diet hold dvt ppx lovenox gi ppx protonix critical care time 60 minutes Plan discussed with: Patient My Orders Orders - CLAUDETTE EATON MD Procedure Category Date Status Time Propofol (Diprivan) PHA 12/01/24 In Process 16:45 Midazolam Drip 50 PHA 12/01/24 In Process Mg/50ml (Versed Drip 5 16:45 Fentanyl Drip PHA 12/01/24 In Process 2500mcg/250mlns 16:45 Rass Sedation Scale ZANDER 12/01/24 In Process 16:45 Eeg Awake/Sleep/Act EEG 12/01/24 Transmitted 16:45 Norepinephrine 8 PHA 12/01/24 In Process Mg/250ml Kit 20:15 Eeg Awake/Sleep/Act EEG 12/01/24 Transmitted 20:13 Pantoprazole PHA 12/01/24 In Process (Protonix) 20:16 Blood Culture VIVEK 12/01/24 In Process 20:17 Enoxaparin Sodium PHA 12/01/24 In Process (Lovenox) 20:19 Communication Order ORDERS 12/01/24 Transmitted 20:29 *Consult CONS 12/01/24 Transmitted / 20:31 Ceftriaxone 1gm/50ml PHA 12/02/24 In Process D5w (Rocephin) 09:00 Azithromycin 500mg/ PHA 12/02/24 In Process 250ml (Zithromax 50 22:00 Prolactin LAB 12/02/24 Logged 09:44 Sodium Chloride 0.9% PHA 12/02/24 In Process 10:00 Nutritional PHA 12/02/24 In Process Supplements (Jevity 10:00 Testosterone Free And LAB 12/02/24 Logged Total 09:47 Date of Service: Dec 02, 2024 Billing Provider: CLAUDETTE EATON MD Common Visit Codes: [id number] CARE 30-74 MIN CLAUDETTE EATON MD Dec 02, 2024 11:14
[2024-12-02] MEDS: NOREPINEPHRINE 8 MG/250ML KIT 250 ML IV SCH (11:34)
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
--- NOTE | 2024-12-02 14:45 | ECG ---
[facility] Test Date: 2024-11-30 Test Time: 15:52:01 Pat Name: NILESH CORRALES Department: ED Room: [address] [place] [address] A Gender: M Maintenance Service Technician: arcelia : 1970 Requested By: ROXANNE MORILLO Order Number: [id number] Reading MD: Harrison Peterson Measurements Intervals [place] Rate: 66 P: 76 ND: 135 QRS: 77 QRSD: 104 T: -60 QT: 372 QTc: 390 Interpretive Statements Sinus rhythm Repol abnrm suggests ischemia, inferior leads Electronically Signed On 12-03-2024 11:55:35 PDT by Harrison Peterson Please click the below link to view image of tracing.
[2024-12-02] MEDS: AZITHROMYCIN 500MG/ 250ML 250 ML IV SCH (22:07)
[2024-12-03] VITALS (108 sets, daily range): BP systolic 92–137; BP diastolic 40–78; PULSE 64–107; RESP 10–26; TEMP 98.8–100.6; O2SAT 95–100
[2024-12-03] MEDS: Jevity 1.2 Cal/Fiber 1 Liter GT SCH (03:10)
[2024-12-03 03:27] LABS: Eosinophils # (auto) 0.1 10 ^3/uL (0-0.8); Lymphocytes # (auto) 0.7 10 ^3/uL (0.4-5.4)
[2024-12-03 03:31] LABS: Basophils # (auto) 0.1 10 ^3/uL (0-0.2); Basophils % (auto) 0.7 % (0.0-2.0); Eosinophils % (auto) 1.3 % (0.0-7.0); Hemoglobin 11.6 g/dL (13.5-17.5); Mean Corpuscular Hgb Conc. 32.3 g/dL (32.0-36.0); Mean Corpuscular Volume 77.3 fL (80.0-100.0); Monocytes # (auto) 0.9 10 ^3/uL (0-1.3); Monocytes % (auto) 10.8 % (0.0-12.0); Neutrophils # (auto) 6.5 10 ^3/uL (1.6-8.6); Neutrophils % (auto) 79.2 % (37.0-80.0); Platelet Count (auto) 298 10^3/uL (140-450); Red Blood Cells 4.65 10^6/uL (4.5-5.90); Red Cell Distribution Width 17.2 % (11.8-14.3); White Blood Cell 8.2 10^3/uL (4.4-10.8)
[2024-12-03 03:37] LABS: Chloride 106 mmol/L (98-107); Potassium 4.4 mmol/L (3.5-5.1); Sodium 140 mmol/L (136-145)
[2024-12-03 03:38] LABS: Anion Gap 5 (5-15); Carbon Dioxide 29 mmol/L (20-31)
[2024-12-03 03:43] LABS: Glucose 78 mg/dL (74-106)
[2024-12-03 03:46] LABS: Phosphorus 3.5 mg/dL (2.4-5.1)
[2024-12-03 04:23] LABS: BUN/Creatinine Ratio 10.8 (10.0-20.0); Blood Urea Nitrogen 13 mg/dL (9-23)
[2024-12-03 06:52] LABS: Base Excess 0.1 mmol/L (-2.0-3.0)
[2024-12-03] MEDS ORDERED: SOD CHL 0.45% 1,000 ML IV ONE (09:00)
[2024-12-03] MEDS: SODIUM CHLORIDE 0.9% 1,000 ML IV ONE (09:50)
--- NOTE | 2024-12-03 10:02 | DVHEEG2 ---
Neurology EEG Procedural Note Procedural Note EXAM DATE: 12/02/2024 REFERRING DOCTOR: Dr. Anderson TECHNIQUE: Eighteen channels of EEG, 2 channels of EOG, and 1 channel of EKG were recorded using the International 10/20 system. CLINICAL DATA: The patient was referred for an EEG evaluation for the evidence of seizure disorder. MEDICATIONS: See chart BACKGROUND ACTIVITY: The record showed low-amplitude theta or semirhythmic theta activity over both hemispheres, that was reactive to external stimuli ACTIVATION: Hyperventilation: Not done Photic Stimulation: Not done Sleep: Unresponsiveness IMPRESSION: This is a mildly abnormal EEG, this EEG seen in mild cerebral dysfunction due to metabolic/hypoxic encephalopathy or medication effects, please correlate clinically The EKG channel showed a regular heart rate of 78 per minute, with infrequent PVCs [place] [address] KOBY ANDERSON MD Dec 03, 2024 10:02
--- NOTE | 2024-12-03 10:39 | DVHPN2 ---
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 seen by me today during rounds, off levo. EEG failed will repeat. Will give fluid and diuresis, poor urine output. Appropriate reflexes. No seizure ativity overnight. febrile. 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 Anemia microcytic hypochromic HEIKE VMN vs rhabdo ISO seizure Low concern for meningoencephalitis c/w mechanical ventilation c/w sedation, target RAAS -3, no observed GTC or myoclonus, sedation with versed and propofol c/w pressor maintain MAP >70 ISO heavy seziure suppressing sedation EEG Neuro consult If appropriate, considering transfer for cEEG keppra load followed by maintenance, d/cd lactate, CK trend cr iron panel blood culture, ESR CPAP tomorrow line IJ TLC folley NGT condition critical prognosis poor diet hold dvt ppx lovenox gi ppx protonix critical care time 50 minutes Plan discussed with: Other My Orders Orders - CLAUDETTE EATON MD Procedure Category Date Status Time Furosemide Injection PHA 12/03/24 In Process (Lasix Injection) 11:00 Cpap Trial For Am ORDERS 12/04/24 Transmitted 08:47 Cpap/Sed Vacation Med ORDERS 12/04/24 Transmitted Weaning 08:47 Sodium Chloride 0.9% PHA 12/03/24 In Process 09:45 Date of Service: Dec 03, 2024 Billing Provider: CLAUDETTE EATON MD Common Visit Codes: [id number] CARE 30-74 MIN CLAUDETTE EATON MD Dec 03, 2024 10:39
[2024-12-03] MEDS: FUROSEMIDE 20 MG/2 ML VIAL IV ONE (12:04)
--- NOTE | 2024-12-03 12:07 | DVHPN2 ---
Progress Note - Dictate Date Seen: Dec 03, 2024 Medical Necessity Reason Pt with a Central, PICC or Fol: Yes The following are medically ne: Central Line, Borges Catheter Subjective Mr. Kalyn Carmona is a 54 years old right-handed gentleman with a history of hypertension, he came to the [facility] on 11/30/2024 with a chief company of headache and seizure activity. I have seen and examined the patient, I have discussed with his nurse, he was intubated, but is respond to stroke painful stimuli, the spontaneous movement in the legs Fentanyl 175 mcg/hour, Versed 11 mg/hour, levo 6 mcg/minute Testicle sterile, 12/02/2024: 187 UDS, 11/30/2024: Negative Plasma alcohol, 12/01/2024: 3.5 Urinalysis, 12/01/2024: WBC: 2, urine leukocyte esterase: Negative ABG, 12/01/2024 1900: Unremarkable WBC/HB/PLT/MCV, 12/01/2024: 7.2/12.9/387/78.8 BUN/CR, 12/01/2024: 11/1.53 Prolactin, 12/01/2024 14:55: 29.71, 12/02/24 11 10: 21.78 EEG, 12/02/2024: mildly abnormal reported he was on testosterone replacement treatment and he had high testosterone level in the recent blood tests Chest x-ray, 12/01/2024 17:01: Pulmonary venous congestion. (The endotracheal tube (ETT) is in satisfactory position) MRI head, 12/01/2024: No acute infarct, intracranial hemorrhage, mass effect, or hydrocephalus (No evidence of acute or remote infarct) vital signs Vital Sign Date Time Temp Pulse Resp B/P (MAP) Pulse Ox O2 Delivery O2 Flow Rate FiO2 12/03/24 10:00 30 12/03/24 10:00 18 100 Mechanical Ventilator+ 12/03/24 10:00 71 12/03/24 09:46 118/63 (81) 12/03/24 06:15 99.5 211.1 12/01/24 07:30 0 Total Intake and Output 12/02/24 12/02/24 12/03/24 15:00 23:00 07:00 Intake Total 565.00 ml 1106.50 ml 1009.5 ml Output Total 350 ml 350 ml Balance 565.00 ml 756.50 ml 659.5 ml medications Current Medications Medications Dose Ordered Sig/Tanya Route Start Time Stop Time Status Last Admin Dose Admin Tamsulosin HCl 0.4 mg QPM PO 11/30/24 19:42 12/02/24 18:31 0.4 MG Propofol 100 ml @ 2.778 mls/ hr Q24H IV 12/01/24 16:45 12/01/24 16:37 2.778 MLS/HR Midazolam HCl 50 ml @ 1 mls/hr Q24H IV 12/01/24 16:45 12/03/24 08:35 11 MLS/HR Fentanyl Citrate 250 ml @ 2.5 mls/hr Q24H IV 12/01/24 16:45 12/03/24 09:57 17.5 MLS/HR Norepinephrine Bitartrate 250 ml @ 3.75 mls/hr Q24H IV 12/01/24 19:45 UNV Pantoprazole Sodium 40 mg DAILY IV 12/01/24 20:16 12/03/24 09:50 40 MG Norepinephrine Bitartrate 250 ml @ 3.75 mls/hr Q24H IV 12/01/24 20:15 12/02/24 11:34 7.5 MLS/HR Enoxaparin Sodium 40 mg DAILY@1800 SC 12/01/24 20:19 12/02/24 18:31 40 MG Ceftriaxone Sodium 50 ml @ 100 mls/hr DAILY@09 IV 12/02/24 09:00 12/03/24 09:49 100 MLS/HR Azithromycin 250 ml @ 125 mls/hr DAILY@2200 IV 12/02/24 22:00 12/02/24 22:07 125 MLS/HR Lorazepam 1 mg Q5MINP PRN IV 12/01/24 21:45 Sodium Chloride 1,000 ml @ 75 mls/hr [id number] IV 12/02/24 10:00 12/02/24 14:57 75 MLS/HR Enteral Nutritional Formula 1,000 ml 30ML/HR GT 12/02/24 10:00 12/03/24 03:10 1,000 ML Acetaminophen 650 mg Q6HP PRN GT 12/03/24 03:00 objective The patient is well-nourished and well-developed with no distress. The patient is intubated MENTAL STATUS: Subjective CRANIAL NERVES: Pupils are equal, round and nonreactive, pinpoint.There are weak corneal reflexes and doll's eyes phenomenon. No signs of facial weakness. There are no gagging or coughing reflexes SENSATION: responses to pain stimuli. MOTOR: Normal tone in the upper and lower extremity. Normal muscle bulk. No fasciculations. He moves the legs REFLEXES: Deep tendon reflexes are symmetrical. No pathological reflexes. CEREBELLAR/COORDINATION: Deferred GAIT/STATION: deferred. laboratory and microbiology Laboratory Tests 12/03/24 03:07 Test 12/03/24 03:07 Range/Units Serum Glucose 78 74-106 mg/dL Problem List New onset grand mal seizure, status epileptic seizure with atypical features/features suggestive of psychogenic seizure Acute respiratory failure Left-sided weakness, MR brain showed no evidence of stroke Elevated testosterone level (overdosing) Assessment/Plan Monitoring Supportive treatment Telemetry Follow up lab tests Stabilize vitals/pressor drip Respiratory support/vent management Discontinue Keppra Preventive seizure medication is not indicated Ativan for seizure breakthrough Wean off sedation as tolerated DVT prophylaxis/SCD GI prophylaxis/Protonix More recommendation per clinical course This medical document was created using an electronic medical record system with [email or web address] computerized dictation system. Although this document has been carefully reviewed, there may still be some phonetic and typographical errors. These areas are purely typographical due to imperfections of the software programs, and do not reflect any compromise in the patient's medical care Prognosis guarded Dietary Evaluation Review Comments: 1. Disagree with current EN regimen, change to Vital AF 1.2 @ 65 ml/hr; begin new formula at tolerated rate of 35 ml/hr, advance by 10 ml Q4 hrs to new goal-rate of 65 ml/hr continuously 2. Provide free water flushes of 30 ml Q6 hrs (120 ml total); adjust PRN 3. Monitor BMP/lytes and replete to WNL TF Provision: TF at goal to provide 1560 ml total volume, 1872 kcal, 117 gm pro, 8 gm fiber, 1265 ml H20 (meets 100% est. kcal needs, 100% est. pro needs) Expected Outcomes/Goals: Adequate energy/protein intake meeting needs, improved clinical status. Plan discussed with: Other Critical Care Time(min): 30 KOBY ANDERSON MD Dec 03, 2024 12:07
[2024-12-03] MEDS: ACETAMINOPHEN 650 mg PER 20.3 mL UD GT PRN (17:59)
[2024-12-04] VITALS (107 sets, daily range): BP systolic 92–139; BP diastolic 43–86; PULSE 48–108; RESP 12–26; TEMP 98.2–100.6; O2SAT 97–100
--- NOTE | 2024-12-04 02:04 | DVH ---
CHEST RADIOGRAPH Indication: INTUBATED Technique: Single frontal view of the chest was obtained COMPARISON: XY CHEST PORTABLE on DOS: 12/02/24, XY CHEST PORTABLE on DOS: 12/01/24, XY CHEST PORTABLE o n DOS: 12/01/24, XY CHEST PORTABLE on DOS: 11/30/24 FINDINGS: Lines and Tubes: Unchanged. Lungs: Clear Pleura: No effusion. No pneumothorax. Cardiomediastinal contours: Unremarkable Bones: Unremarkable IMPRESSION: 1. No acute disease. 2. Lines and tubes unchanged.
[2024-12-04 03:45] LABS: Eosinophils # (auto) 0.1 10 ^3/uL (0-0.8); Hemoglobin 10.7 g/dL (13.5-17.5); Lymphocytes # (auto) 0.5 10 ^3/uL (0.4-5.4); Mean Corpuscular Hemoglobin 24.8 pg (28.0-32.0); Neutrophils # (auto) 6.8 10 ^3/uL (1.6-8.6); White Blood Cell 8.1 10^3/uL (4.4-10.8)
[2024-12-04 03:48] LABS: Basophils # (auto) 0.1 10 ^3/uL (0-0.2); Basophils % (auto) 0.7 % (0.0-2.0); Eosinophils % (auto) 1.2 % (0.0-7.0); Hematocrit 33.1 % (41.0-53.0); Mean Corpuscular Hgb Conc. 32.2 g/dL (32.0-36.0); Mean Corpuscular Volume 77.1 fL (80.0-100.0); Monocytes # (auto) 0.6 10 ^3/uL (0-1.3); Neutrophils % (auto) 84.1 % (37.0-80.0); Nucleated Red Blood Cells % 0.1 %; Platelet Count (auto) 280 10^3/uL (140-450); Red Cell Distribution Width 17.3 % (11.8-14.3)
[2024-12-04 03:52] LABS: Chloride 104 mmol/L (98-107); Potassium 3.7 mmol/L (3.5-5.1); Sodium 140 mmol/L (136-145)
[2024-12-04 03:53] LABS: Anion Gap 7 (5-15); Carbon Dioxide 29 mmol/L (20-31)
[2024-12-04 03:56] LABS: Calcium 8.6 mg/dL (8.7-10.4)
[2024-12-04 03:58] LABS: Glucose 75 mg/dL (74-106)
[2024-12-04 03:59] LABS: BUN/Creatinine Ratio 9.4 (10.0-20.0); Blood Urea Nitrogen 11 mg/dL (9-23)
[2024-12-04 04:01] LABS: Phosphorus 3.4 mg/dL (2.4-5.1)
[2024-12-04 08:56] LABS: Base Excess 1.5 mmol/L (-2.0-3.0)
--- NOTE | 2024-12-04 11:02 | MEDREC ---
[facility] ASP Intervention Section I [facility] Intervention: Review courses of therapy (PATIENT HAS FEVER FOR 2 DAYS (12/03 & 12/04) DESPITE HAVING AZITHROMYCIN AND CEFTRIAXONE FOR 4 DAYS (12/01 - CURRENT). PLEASE CONSIDER ESCALATING ANTIBIOTIC TO BROAD SPECTRUM IF CLINICALLY APPROPRIATE) NEGIN BALDERRAMA Dec 04, 2024 11:02
[2024-12-04] MEDS ORDERED: VANCOMYCIN PER PHARMACY 0 MG IV SCH (11:45)
[2024-12-04] MEDS: SODIUM CHLORIDE 0.9% 1,000 ML IV ONE (12:39)
[2024-12-04] MEDS: VANCOMYCIN 1GM/250ML KIT 250 ML IV SCH (12:43)
--- NOTE | 2024-12-04 16:03 | DVHPN2 ---
Progress Note - Dictate Date Seen: Dec 04, 2024 Medical Necessity Reason Pt with a Central, PICC or Fol: Yes The following are medically ne: Central Line, Borges Catheter Subjective Mr. Kalyn Carmona is a 54 years old right-handed gentleman with a history of hypertension, he came to the [facility] on 11/30/2024 with a chief company of headache and seizure activity. I have seen and examined the patient, I have discussed with his nurse, in the room. he is intubated, but is respond to light touch, he moves the eyes, legs (moves right leg more than left) He has been off sedation since 12/04/2024 8000 Testicle sterile, 12/02/2024: 187 UDS, 11/30/2024: Negative Plasma alcohol, 12/01/2024: 3.5 Urinalysis, 12/01/2024: WBC: 2, urine leukocyte esterase: Negative ABG, 12/01/2024 1900: Unremarkable WBC/HB/PLT/MCV, 12/01/2024: 7.2/12.9/387/78.8 BUN/CR, 12/01/2024: 11/1.53 Prolactin, 12/01/2024 14:55: 29.71, 12/02/24 11 10: 21.78 EEG, 12/02/2024: mildly abnormal reported he was on testosterone replacement treatment and he had high testosterone level in the recent blood tests Chest x-ray, 12/01/2024 17:01: Pulmonary venous congestion. (The endotracheal tube (ETT) is in satisfactory position) MRI head, 12/01/2024: No acute infarct, intracranial hemorrhage, mass effect, or hydrocephalus (No evidence of acute or remote infarct) vital signs Vital Sign Date Time Temp Pulse Resp B/P (MAP) Pulse Ox O2 Delivery O2 Flow Rate FiO2 12/04/24 15:15 99.0 73 110/59 (76) 100 210.2 12/04/24 14:50 18 30 12/04/24 14:00 Mechanical Ventilator+ Total Intake and Output 12/03/24 12/03/24 12/04/24 15:00 23:00 07:00 Intake Total 880.0 ml 881.0 ml 1368.0 ml Output Total 2100 ml 550 ml Balance 880.0 ml -1219.0 ml 818.0 ml medications Current Medications Medications Dose Ordered Sig/Tanya Route Start Time Stop Time Status Last Admin Dose Admin Tamsulosin HCl 0.4 mg QPM PO 11/30/24 19:42 12/03/24 17:00 0.4 MG Propofol 100 ml @ 2.778 mls/ hr Q24H IV 12/01/24 16:45 12/01/24 16:37 2.778 MLS/HR Midazolam HCl 50 ml @ 1 mls/hr Q24H IV 12/01/24 16:45 12/04/24 05:35 1 MLS/HR Fentanyl Citrate 250 ml @ 2.5 mls/hr Q24H IV 12/01/24 16:45 12/04/24 00:48 15 MLS/HR Norepinephrine Bitartrate 250 ml @ 3.75 mls/hr Q24H IV 12/01/24 19:45 UNV Pantoprazole Sodium 40 mg DAILY IV 12/01/24 20:16 12/04/24 09:12 40 MG Norepinephrine Bitartrate 250 ml @ 3.75 mls/hr Q24H IV 12/01/24 20:15 12/02/24 11:34 7.5 MLS/HR Enoxaparin Sodium 40 mg DAILY@1800 SC 12/01/24 20:19 12/03/24 17:00 40 MG Ceftriaxone Sodium 50 ml @ 100 mls/hr DAILY@09 IV 12/02/24 09:00 12/04/24 09:11 100 MLS/HR Azithromycin 250 ml @ 125 mls/hr DAILY@2200 IV 12/02/24 22:00 12/03/24 21:49 125 MLS/HR Lorazepam 1 mg Q5MINP PRN IV 12/01/24 21:45 Enteral Nutritional Formula 1,000 ml 30ML/HR GT 12/02/24 10:00 12/03/24 03:10 1,000 ML Acetaminophen 650 mg Q6HP PRN GT 12/03/24 03:00 12/04/24 09:24 650 MG Dexmedetomidine HCl 400 mcg/ Dextrose 100 ml @ 4.63 mls/hr [id number] IV 12/03/24 17:45 12/04/24 04:30 4.63 MLS/HR Vancomycin HCl 0 ml @ 0 mls/hr UD IV 12/04/24 11:45 Vancomycin HCl 250 ml @ 200 mls/hr Q18H IV 12/04/24 13:00 12/04/24 12:43 200 MLS/HR objective The patient is well-nourished and well-developed with no distress. The patient is intubated MENTAL STATUS: Subjective CRANIAL NERVES: Pupils are equal, round and nonreactive, pinpoint.There are weak corneal reflexes and doll's eyes phenomenon. No signs of facial weakness. There are no gagging or coughing reflexes SENSATION: responses to pain stimuli. MOTOR: Normal tone in the upper and lower extremity. Normal muscle bulk. No fasciculations. He moves the legs REFLEXES: Deep tendon reflexes are symmetrical. No pathological reflexes. CEREBELLAR/COORDINATION: Deferred GAIT/STATION: deferred. laboratory and microbiology Laboratory Tests 12/04/24 03:18 Test 12/04/24 03:18 Range/Units Serum Glucose 75 74-106 mg/dL Problem List New onset grand mal seizure, status epileptic seizure with atypical features/features suggestive of psychogenic seizure Acute respiratory failure Left-sided weakness, MRI brain showed no evidence of stroke Elevated testosterone level (overdosing) Assessment/Plan Monitoring Supportive treatment Telemetry Follow up lab tests Stabilize vitals/pressor drip Respiratory support/vent management Discontinue Keppra Preventive seizure medication is not indicated Ativan for seizure breakthrough Wean off sedation as tolerated DVT prophylaxis/SCD GI prophylaxis/Protonix More recommendation per clinical course This medical document was created using an electronic medical record system with [employer] dictation system. Although this document has been carefully reviewed, there may still be some phonetic and typographical errors. These areas are purely typographical due to imperfections of the software programs, and do not reflect any compromise in the patient's medical care Prognosis guarded Dietary Evaluation Review Comments: 1. Disagree with current EN regimen, change to Vital AF 1.2 @ 65 ml/hr; begin new formula at tolerated rate of 35 ml/hr, advance by 10 ml Q4 hrs to new goal-rate of 65 ml/hr continuously 2. Provide free water flushes of 30 ml Q6 hrs (120 ml total); adjust PRN 3. Monitor BMP/lytes and replete to WNL TF Provision: TF at goal to provide 1560 ml total volume, 1872 kcal, 117 gm pro, 8 gm fiber, 1265 ml H20 (meets 100% est. kcal needs, 100% est. pro needs) Expected Outcomes/Goals: Adequate energy/protein intake meeting needs, improved clinical status. Plan discussed with: Spouse, Other Critical Care Time(min): 30 KOBY ANDERSON MD Dec 04, 2024 16:03
[2024-12-04] MEDS: SODIUM CHLORIDE 0.9% 1,000 ML IV SCH (16:58)
--- NOTE | 2024-12-04 17:25 | DVHPN2 ---
Subjective 12/04-patient having multiple attempts, we will repeat blood cultures, increase antibiotic coverage,. Patient is getting enteral feeds OG tube,. Patient's urine output has been low, noting patient needs more fluids for maintenance + lack of fluid from prior, we will give some bolus and increase maintenance fluid. Defer seizure medications were neurology. Patient has minimal pupillary and gag, absent cough despite being off of sedation. Sedation vacation failing. Poor prognosis. Still Unknown definitive cause of current condition, but possibly from status epilepticus. The causes of status epilepticus not yet definitive. Reviewed: Care Plan, H&P, Labs, Medications, Previous Orders, Radiology Changes from previous H/P or p: No Changes General: Per HPI Objective Vitals Vital Signs Date Time Temp Pulse Resp B/P (MAP) Pulse Ox O2 Delivery O2 Flow Rate FiO2 12/04/24 16:49 74 18 108/64 (79) 100 30 12/04/24 16:00 99.0 210.2 12/04/24 16:00 Mechanical Ventilator+ Intake/Output Intake and Output 12/04/24 07:00 Intake Total 3129.0 ml Output Total 2650 ml Balance 479.0 ml Intake Oral 60 ml IV Total 2517.0 ml Tube Feeding 552 ml Output Urine Total 2650 ml Stool Total 0 ml Exam Intubated, sedated, mechanically ventilated No GTC or myoclonus observed Mechanical breath sound S1 S2 RRR no murmur Abdomen soft No LE edema Patient has minimal pupillary and gag, absent cough despite being off of sedation Medications Current Medications Medications Dose Ordered Sig/Tanya Route Start Time Stop Time Status Last Admin Dose Admin Tamsulosin HCl 0.4 mg QPM PO 11/30/24 19:42 12/03/24 17:00 0.4 MG Propofol 100 ml @ 2.778 mls/ hr Q24H IV 12/01/24 16:45 12/01/24 16:37 2.778 MLS/HR Midazolam HCl 50 ml @ 1 mls/hr Q24H IV 12/01/24 16:45 12/04/24 05:35 1 MLS/HR Fentanyl Citrate 250 ml @ 2.5 mls/hr Q24H IV 12/01/24 16:45 12/04/24 00:48 15 MLS/HR Norepinephrine Bitartrate 250 ml @ 3.75 mls/hr Q24H IV 12/01/24 19:45 UNV Pantoprazole Sodium 40 mg DAILY IV 12/01/24 20:16 12/04/24 09:12 40 MG Norepinephrine Bitartrate 250 ml @ 3.75 mls/hr Q24H IV 12/01/24 20:15 12/02/24 11:34 7.5 MLS/HR Enoxaparin Sodium 40 mg DAILY@1800 SC 12/01/24 20:19 12/03/24 17:00 40 MG Ceftriaxone Sodium 50 ml @ 100 mls/hr DAILY@09 IV 12/02/24 09:00 12/04/24 09:11 100 MLS/HR Azithromycin 250 ml @ 125 mls/hr DAILY@2200 IV 12/02/24 22:00 12/03/24 21:49 125 MLS/HR Lorazepam 1 mg Q5MINP PRN IV 12/01/24 21:45 Enteral Nutritional Formula 1,000 ml 30ML/HR GT 12/02/24 10:00 12/03/24 03:10 1,000 ML Acetaminophen 650 mg Q6HP PRN GT 12/03/24 03:00 12/04/24 09:24 650 MG Dexmedetomidine HCl 400 mcg/ Dextrose 100 ml @ 4.63 mls/hr [id number] IV 12/03/24 17:45 12/04/24 04:30 4.63 MLS/HR Vancomycin HCl 0 ml @ 0 mls/hr UD IV 12/04/24 11:45 Vancomycin HCl 250 ml @ 200 mls/hr Q18H IV 12/04/24 13:00 12/04/24 12:43 200 MLS/HR Sodium Chloride 1,000 ml @ 125 mls/hr Q8H IV 12/04/24 16:30 12/04/24 16:58 125 MLS/HR Laboratory Results Laboratory Tests 12/04/24 03:18 Chemistry Test 12/04/24 03:18 Calcium Level 8.6 mg/dL (8.7-10.4) L Magnesium Level 2.0 mg/dL (1.6-2.6) Phosphorus Level 3.4 mg/dL (2.4-5.1) Urinalysis Test 12/01/24 17:38 Urine Color Light-yellow (Yellow) Urine Clarity Clear (Clear) Urine pH 5.5 (5.0-9.0) Urine Specific [place] 1.019 (1.001-1.035) Urine Protein 1+ (Negative) H Urine Ketones Trace (Negative) Urine Blood Trace /uL (Negative) H Urine Nitrite Negative (Negative) Urine Bilirubin Negative (Negative) Urine Urobilinogen Normal mg/dL (Negative) Urine Leukocyte Esterase Negative /uL (Negative) Urine RBC 1 /hpf (0 - 3) Urine Microscopic WBC 2 /HPF (0-3) Urine Squamous Epithelial Cells None seen /hpf (<5) Urine Bacteria None seen /hpf (None Seen) Urine Mucus Few (None Seen) Urine Glucose Normal mg/dL (Normal) Blood Gas Results Test 12/04/24 08:20 Arterial Blood pH 7.401 (7.350-7.450) FiO2 % 30.0 Microbiology Microbiology Date/Time Source Procedure Growth Status 12/01/24 20:58 Blood Blood Culture - Preliminary NO GROWTH AFTER 48 HOURS OF INCUBATION. Resulted 12/01/24 17:38 Urine - [place] Urine Culture - Final Complete 12/01/24 16:00 Sputum Gram Stain - Final Resulted 12/01/24 16:00 Sputum Respiratory Culture - Preliminary Resulted Labs and/or images reviewed: Labs reviewed by me, Image(s) reviewed by me Assessment/Plan Assessment/Plan 12/04-patient having multiple attempts, we will repeat blood cultures, increase antibiotic coverage,. Patient is getting enteral feeds OG tube,. Patient's urine output has been low, noting patient needs more fluids for maintenance + lack of fluid from prior, we will give some bolus and increase maintenance fluid. Defer seizure medications were neurology. Patient has minimal pupillary and gag, absent cough despite being off of sedation. Sedation vacation failing. Poor prognosis. Still Unknown definitive cause of current condition, but possibly from status epilepticus. The causes of status epilepticus not yet definitive. Sedation vacation failing. 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 Anemia microcytic hypochromic HEIKE VMN vs rhabdo ISO seizure meningoencephalitis possible c/w mechanical ventilation c/w sedation, target RAAS -3, no observed GTC or myoclonus, sedation with versed and propofol c/w pressor maintain MAP >70 ISO heavy seziure suppressing sedation EEG per Neurology Neuro consult-continuing antiepileptics If appropriate, [facility] by maintenance, d/cd lactate, CK trend cr iron panel blood culture, ESR line IJ TLC folley NGT condition critical prognosis poor diet enteral feeds dvt ppx lovenox gi ppx protonix ICU Full code Plan discussed with: Other My Orders Orders - DERICK MOBLEY MD Procedure Category Date Status Time Vancomycin Per PHA 12/04/24 In Process Pharmacy 11:45 Blood Culture VIEVK 12/04/24 In Process 11:37 Vancomycin 1gm/250ml PHA 12/04/24 In Process Kit 13:00 Complete Blood Count LAB 12/05/24 Verified 04:00 Creatinine LAB 12/05/24 Verified 04:00 Vancomycin,Trough LAB 12/06/24 Verified 18:00 Vancomycin Per ZANDER 12/04/24 In Process Pharmacy Protoc 12:22 Sodium Chloride 0.9% PHA 12/04/24 In Process 16:30 Date of Service: Dec 04, 2024 Billing Provider: DERICK MOBLEY MD Common Visit Codes: [id number] CARE 30-74 MIN DERICK MOBLEY MD Dec 04, 2024 17:25
--- NOTE | 2024-12-04 23:13 | DVHINCON2 ---
Date of service: Dec 04, 2024 Referring Physician Rene Montero MD Reason for Consultation Acute hypoxic respiratory failure requiring mechanical ventilator History of Present Illness A 54-year-old man with past medical history of hypertension and BPH who initially presented to ED on 11/30/24 for evaluation of seizure activity. at bedside reported patient having a witnessed seizure lasting approximately 5- 10 minutes, noted patient biting his tongue and eyes rolling back. Patient was alert and oriented upon examination in ER. Of note, he had been complaining of a headache for the past 3 days prior to presentation. Denied chest pain, palpitations or other acute complaints. Patient was admitted for further care. He was intubated subsequently on 12/01/24 after he was noted to have multiple seizure events. Pulmonary consultation is requested for evaluation and management of acute hypoxic respiratory failure requiring mechanical ventilator. Review of Systems: 14-point review of systems negative unless otherwise noted above. Past Medical History: Hypertension and BPH Past Surgical History: None Medications: Reviewed. Allergies: No known drug allergies. Family History: Cancer. Social History: Nonsmoker. No alcohol or illicit drug use. Family History: FH: cancer G8 MOTHER Allergies: Coded Allergies: NO KNOWN ALLERGIES (Unverified , 11/30/24) Home Meds Reported Medications Tamsulosin Hcl (Tamsulosin Hcl) 0.4 Mg Cap, 1 CAP PO DAILY, #30 CAP 5 Refills 12/01/24 Chlorpromazine HCl (Chlorpromazine Hydrochlor) 50 Mg Tab, 50 MG PO BID, TAB 12/01/24 Testosterone (Testosterone) 1.62 % Gel, 1 TOP QAM 11/30/24 Nortriptyline HCl (Nortriptyline Hydrochlori) 10 Mg Cap, PO 11/30/24 Famotidine (Famotidine) 40 Mg Tab, 1 TAB PO DAILY 11/30/24 Pantoprazole Sodium Sesquihydr (Pantoprazole Sodium) 40 Mg Tab, 1 TAB PO QAM 11/30/24 Losartan Potassium (Losartan Potassium) 50 Mg Tab, 1 TAB PO DAILY 11/30/24 Current Medications Current Medications Medications (Trade) Dose Ordered Sig/Tanya Route PRN Reason Start Time Stop Time Status Last Admin Vancomycin HCl 0 ml @ 0 mls/hr UD IV 12/04/24 11:45 Vancomycin HCl 250 ml @ 200 mls/hr Q18H IV 12/04/24 13:00 12/04/24 12:43 Sodium Chloride 1,000 ml @ 125 mls/hr Q8H IV 12/04/24 16:30 12/04/24 19:36 Vital Signs Vital Signs Date Time Temp Pulse Resp B/P (MAP) Pulse Ox O2 Delivery O2 Flow Rate FiO2 12/04/24 22:11 70 18 118/59 (78) 99 30 12/04/24 20:00 Mechanical Ventilator+ 12/04/24 18:30 98.6 209.5 Physical Exam Gen.: Patient lying in bed in medical ICU. Intubated on mechanical ventilator. Head: Normocephalic, atraumatic. Eyes: PERRLA. Ears: Normal external anatomy. Throat: Endotracheal tube and orogastric tube in place. Neck: Supple, trachea midline. Chest: Transmitted breath sounds bilaterally. Decreased air entry bilaterally. No wheezing. Bibasilar crackles. Cardiovascular: Positive S1, positive S2. Regular rate and rhythm. Abdomen: Positive bowel sounds in all 4 quadrants. Soft, nontender, nondistended. : Borges in place. Normal external genitalia. Rectal: Deferred. Skin: Warm, dry. Intact. Extremities: 2+ radial pulses bilaterally. No lower extremity edema. Neuro: Off sedation Labs/Diagnostic Data Labs Test 12/04/24 08:20 12/04/24 03:18 12/02/24 11:10 12/02/24 06:49 Range/Units Blood Gas Specimen Type Arterial Blood Gas Sample Site Right radial Blood Gas Patient Temperature 37.0 Arterial Blood Date Drawn [id number] Arterial Blood pH 7.401 7.350-7.450 Arterial Blood Partial Pressure CO2 43.8 35.0-48.0 mmHg Arterial Blood Partial Pressure O2 68.7 L 83.0-108.0 mmHg Arterial Blood HCO3 26.6 21.0-28.0 mmol/L Arterial Blood Oxygen Saturation 92.5 L 94.0-98.0 % Arterial Blood Base Excess 1.5 -2.0-3.0 mmol/L Arterial Blood Oxyhemoglobin 91.8 L 94.0-98.0 % Arterial Blood Carboxyhemoglobin 0.6 0.5-1.5 % Arterial Blood Methemoglobin 0.2 0.0-1.5 % Nolan Test Modified Blood Gas Total Hemoglobin 13.20 L 13.5-17.5 g/dL Blood Gas Set Respiration Rate 18.0 Blood Gas Modality Vent - ac Blood Gas Spontaneous Rate 18 FiO2 % 30.0 Blood Gas Tidal Volume 500.0 Blood Gas PEEP or CPAP 5.0 White Blood Count 8.1 4.4-10.8 10^3/uL Red Blood Count 4.30 L 4.5-5.90 10^6/uL Hemoglobin 10.7 L 13.5-17.5 g/dL Hematocrit 33.1 L 41.0-53.0 % Mean Corpuscular Volume 77.1 L 80.0-100.0 fL Mean Corpuscular Hemoglobin 24.8 L 28.0-32.0 pg Mean Corpuscular Hemoglobin Concent 32.2 32.0-36.0 g/dL Red Cell Distribution Width 17.3 H 11.8-14.3 % Platelet Count 280 140-450 10^3/uL Mean Platelet Volume 7.0 6.9-10.8 fL Neutrophils (%) (Auto) 84.1 H 37.0-80.0 % Lymphocytes (%) (Auto) 6.0 L 10.0-50.0 % Monocytes (%) (Auto) 8.0 0.0-12.0 % Eosinophils (%) (Auto) 1.2 0.0-7.0 % Basophils (%) (Auto) 0.7 0.0-2.0 % Neutrophils # (Auto) 6.8 1.6-8.6 10 ^3/uL Lymphocytes # (Auto) 0.5 0.4-5.4 10 ^3/uL Monocytes # (Auto) 0.6 0-1.3 10 ^3/uL Eosinophils # (Auto) 0.1 0-0.8 10 ^3/uL Basophils # (Auto) 0.1 0-0.2 10 ^3/uL Nucleated Red Blood Cells 0.1 % Sodium Level 140 136-145 mmol/L Potassium Level 3.7 3.5-5.1 mmol/L Chloride Level 104 98-107 mmol/L Carbon Dioxide Level 29 20-31 mmol/L Anion Gap 7 5-15 Blood Urea Nitrogen 11 9-23 mg/dL Creatinine 1.17 0.700-1.30 mg/dL Glomerular Filtration Rate Calc 75 >90 mL/min BUN/Creatinine Ratio 9.4 L 10.0-20.0 Serum Glucose 75 74-106 mg/dL Calcium Level 8.6 L 8.7-10.4 mg/dL Phosphorus Level 3.4 2.4-5.1 mg/dL Magnesium Level 2.0 1.6-2.6 mg/dL Prolactin 21.78 H 2.1-17.7 ng/mL Testosterone Level 187 L 264-916 ng/dL Blood Gas Inspiratory Pressure 19.0 Bl Gas Inspiratory/Expiratory Ratio 1:2.7 Specimen Drawn By ghyde rt Test 12/02/24 03:20 12/01/24 17:38 12/01/24 14:55 12/01/24 14:23 Range/Units Lactic Acid Level 0.9 0.4-2.0 mmol/L Creatine Kinase 567 H 46-171 U/L Urine Color Light-yellow Yellow Urine Clarity Clear Clear Urine pH 5.5 5.0-9.0 Urine Specific [place] 1.019 1.001-1.035 Urine Protein 1+ H Negative Urine Ketones Trace Negative Urine Blood Trace H Negative /uL Urine Nitrite Negative Negative Urine Bilirubin Negative Negative Urine Urobilinogen Normal Negative mg/dL Urine Leukocyte Esterase Negative Negative /uL Urine RBC 1 0 - 3 /hpf Urine Microscopic WBC 2 0-3 /HPF Urine Squamous Epithelial Cells None seen <5 /hpf Urine Bacteria None seen None Seen /hpf Urine Mucus Few None Seen Urine Glucose Normal Normal mg/dL Prothrombin Time 10.7 9.3-11.8 sec Prothrombin Time INR 1.01 0.9-1.15 Iron Level 16 L 65-175 ug/dL Total Iron Binding Capacity 365 250-425 ug/dL Percent Iron Saturation 4.4 L 20-55 % Ferritin 10.7 L 22-322 ng/mL POC Glucose 119 H 70-106 mg/dl Test 12/01/24 05:11 11/30/24 20:11 11/30/24 14:49 Range/Units Plasma/Serum Blood Alcohol 3.5 <10 mg/dL Urine Opiates Screen Neg NEGATIVE Urine Fentanyl Screen Neg NEGATIVE Urine Barbiturates Screen Neg NEGATIVE Urine Phencyclidine Screen Neg NEGATIVE Urine Amphetamines Screen Neg NEGATIVE Urine Benzodiazepines Screen Neg NEGATIVE Urine Cocaine Screen Neg NEGATIVE Urine Cannabinoids Screen Neg NEGATIVE Troponin I High Sensitivity 19 </=54 ng/L Thyroid Stimulating Hormone (TSH) 2.11 0.55-4.78 uIU/mL Microbiology Date/Time Source Procedure Growth Status 12/01/24 20:58 Blood Blood Culture - Preliminary NO GROWTH AFTER 72 HOURS OF INCUBATION. Resulted 12/01/24 17:38 Urine - [place] Urine Culture - Final Complete 12/01/24 16:00 Sputum Gram Stain - Final Resulted 12/01/24 16:00 Sputum Respiratory Culture - Preliminary Resulted Assessment Impression: Acute hypoxic respiratory failure On mechanical ventilator Status epilepticus Possible aspiration pneumonia Hypertension Anemia, microcytic-hypochromic Acute kidney injury Hx of TBI Possible meningoencephalitis Plan: s/p intubation on mechanical ventilator. CXR image and report reviewed. ABG reviewed, compensated. On AC mode; RR 18, VT 500, PEEP 5, FiO2 30% Titrate FIO2 to keep O2 saturation above 90%. VAP bundle. Daily ABG and CXR while intubated Head of bed elevation Aspiration precautions Off tube feeds Off sedation Plan for CPAP trial when awake Febrile - started on antibiotics F/u cultures. 250 mL normal saline bolus given Monitor H&H Pressors as necessary for hemodynamic support Titrate to keep mean arterial pressure greater than 65 mmHg. Monitor renal function d/t HEIKE Monitor electrolytes. Supplement as necessary. Monitor ins and outs. GI prophylaxis. DVT prophylaxis. Prognosis: Poor given patient's multiple co-morbidities. Condition: Critical Rest of plan per hospitalist and other consultants. A total of 35 minutes of critical care time was spent reviewing the patient record, examining the patient, making a diagnostic and therapeutic plan, discussing this plan with the medical personnel, following up on diagnostic studies and following the patient for clinical stability excluding any and all procedures. At least 50% of this time was spent in direct, [id number] contact. Thank you Dr. Montero, for allowing me to participate in this patient's care. Further recommendations will depend on the patient's clinical course. Please do not hesitate to contact me if you have any questions or concerns. This medical document was created using an electronic medical record system with [employer] dictation system. Although these documentations are being carefully reviewed, there may still be some phonetic and typographical changes. The errors are purely typographical, due to imperfection on the software program, and do not reflect any compromise in the patient's medical care. Plan discussed with: Other (ANDI Roberts/Dr. Montero) ASHANTI CHAN MD Dec 04, 2024 23:13
[2024-12-05] VITALS (84 sets, daily range): BP systolic 94–166; BP diastolic 46–93; PULSE 54–134; RESP 9–23; TEMP 97–99.6; O2SAT 96–100
--- NOTE | 2024-12-05 00:28 | DVH ---
CHEST RADIOGRAPH Indication: DISLODGED CENTRAL LINE Technique: Single frontal view of the chest was obtained COMPARISON: XY CHEST PORTABLE on DOS: 12/04/24, XY CHEST PORTABLE on DOS: 12/02/24, XY CHEST PORTABLE o n DOS: 12/01/24, XY CHEST PORTABLE on DOS: 12/01/24, XY CHEST PORTABLE on DOS: 11/30/24 FINDINGS: Lines and Tubes: Unchanged Lungs: New medial right basilar infiltrate. Pleura: No effusion. No pneumothorax. Cardiomediastinal contours: Unremarkable Bones: Unremarkable IMPRESSION: 1. New medial right basilar infiltrate. 2. Lines and tubes unchanged.
[2024-12-05 04:19] LABS: Basophils # (auto) 0 10 ^3/uL (0-0.2); Basophils % (auto) 0.4 % (0.0-2.0); Eosinophils # (auto) 0.1 10 ^3/uL (0-0.8); Hemoglobin 9.8 g/dL (13.5-17.5); Lymphocytes # (auto) 0.7 10 ^3/uL (0.4-5.4); Neutrophils # (auto) 8.9 10 ^3/uL (1.6-8.6)
[2024-12-05 04:21] LABS: Eosinophils % (auto) 1.2 % (0.0-7.0); Hematocrit 29.4 % (41.0-53.0); Lymphocytes % (auto) 6.4 % (10.0-50.0); Mean Corpuscular Hemoglobin 25.4 pg (28.0-32.0); Mean Corpuscular Hgb Conc. 33.4 g/dL (32.0-36.0); Mean Corpuscular Volume 76.3 fL (80.0-100.0); Monocytes # (auto) 0.7 10 ^3/uL (0-1.3); Monocytes % (auto) 7.1 % (0.0-12.0); Neutrophils % (auto) 84.9 % (37.0-80.0); Platelet Count (auto) 278 10^3/uL (140-450); Red Blood Cells 3.85 10^6/uL (4.5-5.90); Red Cell Distribution Width 17.2 % (11.8-14.3); White Blood Cell 10.5 10^3/uL (4.4-10.8)
[2024-12-05 07:24] LABS: Base Excess 2.7 mmol/L (-2.0-3.0)
--- NOTE | 2024-12-05 10:30 | DVHPN2 ---
Subjective Update 12/05- 12/04-patient having multiple attempts, we will repeat blood cultures, increase antibiotic coverage,. Patient is getting enteral feeds OG tube,. Patient's urine output has been low, noting patient needs more fluids for maintenance + lack of fluid from prior, we will give some bolus and increase maintenance fluid. Defer seizure medications were neurology. Patient has minimal pupillary and gag, absent cough despite being off of sedation. Sedation vacation failing. Poor prognosis. Still Unknown definitive cause of current condition, but possibly from status epilepticus. The causes of status epilepticus not yet definitive. 12/05 feels sedation vacation yesterday. Today sedation vacation patient is becoming agitated. CPAP travel be done today. He was appearing to have some response to voice but not opening eyes. Overall mentation appears to be somewhat improving in cases looking hopeful. No seizures with sedation vacation. Pending CPAP trial we will extubate if passes CPAP trial. During sedation vacation patient pulled out right IJ CBC but still has peripheral IV access and there is no vasopressors being use. We will use restraints temporarily to avoid the patient from self extubating. Reviewed: Care Plan, H&P, Labs, Medications, Previous Orders, Radiology Changes from previous H/P or p: No Changes General: Per HPI Objective Vitals Vital Signs Date Time Temp Pulse Resp B/P (MAP) Pulse Ox O2 Delivery O2 Flow Rate FiO2 12/05/24 08:17 63 18 94/56 (69) 100 30 12/05/24 06:45 97.5 207.5 12/05/24 06:00 Mechanical Ventilator+ Intake/Output Intake and Output 12/05/24 07:00 Intake Total 3712.040 ml Output Total 650 ml Balance 3062.040 ml Intake Oral 90 ml IV Total 3327.040 ml Tube Feeding 295 ml Output Urine Total 650 ml Exam Intubated, sedated, mechanically ventilated No GTC or myoclonus observed Mechanical breath sound S1 S2 RRR no murmur Abdomen soft No LE edema Patient has minimal pupillary and gag, absent cough despite being off of sedation Medications Current Medications Medications Dose Ordered Sig/Tanya Route Start Time Stop Time Status Last Admin Dose Admin Tamsulosin HCl 0.4 mg QPM PO 11/30/24 19:42 12/04/24 17:25 0.4 MG Propofol 100 ml @ 2.778 mls/ hr Q24H IV 12/01/24 16:45 12/01/24 16:37 2.778 MLS/HR Midazolam HCl 50 ml @ 1 mls/hr Q24H IV 12/01/24 16:45 12/05/24 00:56 4 MLS/HR Fentanyl Citrate 250 ml @ 2.5 mls/hr Q24H IV 12/01/24 16:45 12/04/24 00:48 15 MLS/HR Norepinephrine Bitartrate 250 ml @ 3.75 mls/hr Q24H IV 12/01/24 19:45 UNV Pantoprazole Sodium 40 mg DAILY IV 12/01/24 20:16 12/05/24 09:42 40 MG Norepinephrine Bitartrate 250 ml @ 3.75 mls/hr Q24H IV 12/01/24 20:15 12/02/24 11:34 7.5 MLS/HR Enoxaparin Sodium 40 mg DAILY@1800 SC 12/01/24 20:19 12/04/24 17:26 40 MG Ceftriaxone Sodium 50 ml @ 100 mls/hr DAILY@09 IV 12/02/24 09:00 12/05/24 09:22 100 MLS/HR Azithromycin 250 ml @ 125 mls/hr DAILY@2200 IV 12/02/24 22:00 12/04/24 22:31 125 MLS/HR Lorazepam 1 mg Q5MINP PRN IV 12/01/24 21:45 Enteral Nutritional Formula 1,000 ml 30ML/HR GT 12/02/24 10:00 12/03/24 03:10 1,000 ML Acetaminophen 650 mg Q6HP PRN GT 12/03/24 03:00 12/04/24 09:24 650 MG Dexmedetomidine HCl 400 mcg/ Dextrose 100 ml @ 4.63 mls/hr [id number] IV 12/03/24 17:45 12/05/24 05:46 6.945 MLS/HR Vancomycin HCl 0 ml @ 0 mls/hr UD IV 12/04/24 11:45 Vancomycin HCl 250 ml @ 200 mls/hr Q18H IV 12/04/24 13:00 12/05/24 06:14 200 MLS/HR Sodium Chloride 1,000 ml @ 125 mls/hr Q8H IV 12/04/24 16:30 12/05/24 05:43 125 MLS/HR Laboratory Results Laboratory Tests 12/04/24 03:18 12/05/24 03:10 Urinalysis Test 12/01/24 17:38 Urine Color Light-yellow (Yellow) Urine Clarity Clear (Clear) Urine pH 5.5 (5.0-9.0) Urine Specific [place] 1.019 (1.001-1.035) Urine Protein 1+ (Negative) H Urine Ketones Trace (Negative) Urine Blood Trace /uL (Negative) H Urine Nitrite Negative (Negative) Urine Bilirubin Negative (Negative) Urine Urobilinogen Normal mg/dL (Negative) Urine Leukocyte Esterase Negative /uL (Negative) Urine RBC 1 /hpf (0 - 3) Urine Microscopic WBC 2 /HPF (0-3) Urine Squamous Epithelial Cells None seen /hpf (<5) Urine Bacteria None seen /hpf (None Seen) Urine Mucus Few (None Seen) Urine Glucose Normal mg/dL (Normal) Blood Gas Results Test 12/05/24 06:38 Arterial Blood pH 7.454 (7.350-7.450) FiO2 % 30.0 Microbiology Microbiology Date/Time Source Procedure Growth Status 12/01/24 20:58 Blood Blood Culture - Preliminary NO GROWTH AFTER 72 HOURS OF INCUBATION. Resulted 12/01/24 17:38 Urine - [place] Urine Culture - Final Complete 12/01/24 16:00 Sputum Gram Stain - Final Resulted 12/01/24 16:00 Sputum Respiratory Culture - Preliminary Resulted Labs and/or images reviewed: Labs reviewed by me, Image(s) reviewed by me Assessment/Plan Assessment/Plan 12/05 feels sedation vacation yesterday. Today sedation vacation patient is becoming agitated. CPAP travel be done today. He was appearing to have some response to voice but not opening eyes. Overall mentation appears to be somewhat improving in cases looking hopeful. No seizures with sedation vacation. Pending CPAP trial we will extubate if passes CPAP trial. During sedation vacation patient pulled out right IJ CBC but still has peripheral IV access and there is no vasopressors being use. We will use restraints temporarily to avoid the patient from self extubating. 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 Anemia microcytic hypochromic HEIKE VMN vs rhabdo ISO seizure meningoencephalitis possible c/w mechanical ventilation c/w sedation, target RAAS -3, no observed GTC or myoclonus, sedation with versed and propofol c/w pressor maintain MAP >70 ISO heavy seziure suppressing sedation EEG per Neurology Neuro consult-continuing antiepileptics If appropriate, considering transfer for cEEG keppra load followed by maintenance, d/cd lactate, CK trend cr iron panel blood culture, ESR line IJ TLC folley NGT condition critical prognosis poor diet enteral feeds dvt ppx lovenox gi ppx protonix ICU Full code Plan discussed with: Patient My Orders Orders - DERICK MOBLEY MD Procedure Category Date Status Time Vancomycin Per PHA 12/04/24 In Process Pharmacy 11:45 Blood Culture IVVEK 12/04/24 In Process 11:37 Vancomycin 1gm/250ml PHA 12/04/24 In Process Kit 13:00 Vancomycin,Trough LAB 12/06/24 Verified 18:00 Vancomycin Per ZANDER 12/04/24 In Process Pharmacy Protoc 12:22 Sodium Chloride 0.9% PHA 12/04/24 In Process 16:30 Cpap Trial For Am ORDERS 12/05/24 Transmitted 04:00 Cpap/Sed Vacation Med ORDERS 12/05/24 Transmitted Weaning 04:00 Date of Service: Dec 05, 2024 Billing Provider: DERICK MOBLEY MD Common Visit Codes: [id number] CARE 30-74 MIN DERICK MOBLEY MD Dec 05, 2024 10:30
[2024-12-05 17:28] LABS: Base Excess 0.5 mmol/L (-2.0-3.0)
[2024-12-05] MEDS: chlorproMAZINE HCL 25 MG/1 ML AMP IM ONE (18:06)
[2024-12-05] MEDS: hydrALAZINE HCL 20 MG/ML VL IV PRN (22:34)
--- NOTE | 2024-12-05 23:00 | DVHPN2 ---
Progress Note - Dictate Date Seen: Dec 05, 2024 Medical Necessity Reason Pt with a Central, PICC or Fol: Yes The following are medically ne: Central Line, Snow Catheter Reason for snow catheter: Strict I&O Subjective Patient seen and examined at bedside. S/p extubation, on supplemental oxygen Overnight events reviewed. vital signs Vital Sign Date Time Temp Pulse Resp B/P (MAP) Pulse Ox O2 Delivery O2 Flow Rate FiO2 12/05/24 22:34 166/82 12/05/24 21:00 126 19 100 12/05/24 20:00 Nasal Cannula* 2 28 12/05/24 20:00 99.6 99.6 Total Intake and Output 12/04/24 12/04/24 12/05/24 15:00 23:00 07:00 Intake Total 1306.63 ml 1238.0 ml 1292.410 ml Output Total 350 ml 300 ml Balance 1306.63 ml 888.0 ml 992.410 ml medications Current Medications Medications Dose Ordered Sig/Tanya Route Start Time Stop Time Status Last Admin Dose Admin Tamsulosin HCl 0.4 mg QPM PO 11/30/24 19:42 12/04/24 17:25 0.4 MG Propofol 100 ml @ 2.778 mls/ hr Q24H IV 12/01/24 16:45 12/01/24 16:37 2.778 MLS/HR Midazolam HCl 50 ml @ 1 mls/hr Q24H IV 12/01/24 16:45 12/05/24 00:56 4 MLS/HR Fentanyl Citrate 250 ml @ 2.5 mls/hr Q24H IV 12/01/24 16:45 12/04/24 00:48 15 MLS/HR Norepinephrine Bitartrate 250 ml @ 3.75 mls/hr Q24H IV 12/01/24 19:45 UNV Pantoprazole Sodium 40 mg DAILY IV 12/01/24 20:16 12/05/24 09:42 40 MG Norepinephrine Bitartrate 250 ml @ 3.75 mls/hr Q24H IV 12/01/24 20:15 12/02/24 11:34 7.5 MLS/HR Enoxaparin Sodium 40 mg DAILY@1800 SC 12/01/24 20:19 12/05/24 18:09 40 MG Ceftriaxone Sodium 50 ml @ 100 mls/hr DAILY@09 IV 12/02/24 09:00 12/05/24 09:22 100 MLS/HR Azithromycin 250 ml @ 125 mls/hr DAILY@2200 IV 12/02/24 22:00 12/05/24 22:01 125 MLS/HR Lorazepam 1 mg Q5MINP PRN IV 12/01/24 21:45 Enteral Nutritional Formula 1,000 ml 30ML/HR GT 12/02/24 10:00 12/03/24 03:10 1,000 ML Acetaminophen 650 mg Q6HP PRN GT 12/03/24 03:00 12/04/24 09:24 650 MG Dexmedetomidine HCl 400 mcg/ Dextrose 100 ml @ 4.63 mls/hr [id number] IV 12/03/24 17:45 12/05/24 05:46 6.945 MLS/HR Vancomycin HCl 0 ml @ 0 mls/hr UD IV 12/04/24 11:45 Vancomycin HCl 250 ml @ 200 mls/hr Q18H IV 12/04/24 13:00 12/05/24 06:14 200 MLS/HR Sodium Chloride 1,000 ml @ 125 mls/hr Q8H IV 12/04/24 16:30 12/05/24 17:29 125 MLS/HR Hydralazine HCl 10 mg Q6HP PRN IV 12/05/24 22:30 12/05/24 22:34 10 MG objective Gen.: Patient lying in bed in no apparent distress. On supplemental oxygen. Head: Normocephalic, atraumatic. Eyes: EOMI/PERRLA. Ears: Normal hearing. Normal anatomy. Neck/trachea: Trachea midline, supple. Nose: Normal external anatomy. Mouth: Moist mucous membranes. Chest: Decreased air entry bilaterally. No wheezing or rhonchi. Cardiovascular: Positive S1, positive S2. Regular rate and rhythm. Abdomen: Positive bowel sounds in all 4 quadrants. Soft, non-tender, non- distended. : Deferred. Rectal: Deferred. Skin: Warm, dry. Intact. Extremities: 2+ radial pulses bilaterally. No lower extremity edema. Neuro: Awake, alert, oriented x3. No gross motor or sensory deficits. Cranial nerves II through XII intact. Gait not assessed laboratory and microbiology Laboratory Tests 12/05/24 03:10 12/04/24 03:18 Test 12/04/24 03:18 Range/Units Serum Glucose 75 74-106 mg/dL Assessment/Plan Impression: Acute hypoxic respiratory failure On mechanical ventilator Status epilepticus Possible aspiration pneumonia Hypertension Anemia, microcytic-hypochromic Acute kidney injury Hx of TBI Possible meningoencephalitis Events: Patient tolerated CPAP and was extubated uneventfully at 1627 hours Placed on supplemental oxygen, 30% Cool mist via aerosol mask Continue antibiotics Blood pressure control GI prophylaxis - Protonix DVT prophylaxis - Lovenox Labs and imaging reviewed. Rest of plan as noted below. Plan: s/p extubation Continue supplemental oxygen Titrate to keep O2 sats above 90%. Head of bed elevation Aspiration precautions Off tube feeds Continue antibiotics F/u cultures. Monitor H&H Pressors as necessary for hemodynamic support Titrate to keep mean arterial pressure greater than 65 mmHg. Monitor renal function d/t HEIKE Monitor electrolytes. Supplement as necessary. Monitor ins and outs. GI prophylaxis. DVT prophylaxis. Prognosis: Poor given patient's multiple co-morbidities. Condition: Critical Rest of plan per hospitalist and other consultants. A total of 35 minutes of critical care time was spent reviewing the patient record, examining the patient, making a diagnostic and therapeutic plan, discussing this plan with the medical personnel, following up on diagnostic studies and following the patient for clinical stability excluding any and all procedures. At least 50% of this time was spent in direct, [id number] contact. Thank you Dr. Montero, for allowing me to participate in this patient's care. Further recommendations will depend on the patient's clinical course. Please do not hesitate to contact me if you have any questions or concerns. This medical document was created using an electronic medical record system with [employer] dictation system. Although these documentations are being carefully reviewed, there may still be some phonetic and typographical changes. The errors are purely typographical, due to imperfection on the software program, and do not reflect any compromise in the patient's medical care. Dietary Evaluation Review Comments: 1. Disagree with current EN regimen, change to Vital AF 1.2 @ 65 ml/hr; begin new formula at tolerated rate of 35 ml/hr, advance by 10 ml Q4 hrs to new goal-rate of 65 ml/hr continuously 2. Provide free water flushes of 30 ml Q6 hrs (120 ml total); adjust PRN 3. Monitor BMP/lytes and replete to WNL TF Provision: TF at goal to provide 1560 ml total volume, 1872 kcal, 117 gm pro, 8 gm fiber, 1265 ml H20 (meets 100% est. kcal needs, 100% est. pro needs) Expected Outcomes/Goals: Adequate energy/protein intake meeting needs, improved clinical status. Plan discussed with: Other (ANDI Soto) Critical Care Time(min): 35 ASHANTI CHAN MD Dec 05, 2024 23:00
[2024-12-05] MEDS: METOPROLOL TARTRATE 1MG/1ML-5ML VIAL IV ONE (23:23)
[2024-12-05 23:56] LABS: Alanine Aminotransferase 26 U/L (7-40); Albumin 4.2 g/dL (3.2-4.8); Alkaline Phosphatase 38 U/L (46-116); Anion Gap 9 (5-15); BUN/Creatinine Ratio 5.2 (10.0-20.0); Bilirubin, Total 0.5 mg/dL (0.2-1.0); Blood Urea Nitrogen < 5 mg/dL (9-23); Calcium 9.5 mg/dL (8.7-10.4); Carbon Dioxide 25 mmol/L (20-31); Chloride 107 mmol/L (98-107); Glucose 86 mg/dL (74-106); Magnesium 1.9 mg/dL (1.6-2.6); Potassium 3.8 mmol/L (3.5-5.1); Sodium 141 mmol/L (136-145); Total Protein 6.9 g/dL (5.7-8.2)
[2024-12-05 23:57] LABS: Aspartate Aminotransferase 45 U/L (13-40)
[2024-12-06] VITALS (25 sets, daily range): BP systolic 121–164; BP diastolic 71–103; PULSE 88–116; RESP 13–20; TEMP 97.3–99.5; O2SAT 88–100
[2024-12-06] MEDS: MORPHINE SULFATE INJ 2 MG/ml SYRG IV PRN ×2 (00:20→04:17)
--- NOTE | 2024-12-06 09:03 | ECG ---
[facility] Test Date: 2024-12-05 Test Time: 23:00:58 Pat Name: NILESH CORRALES Department: icu Room: 0286T Gender: M Core Feeder: elbert : 1970 Requested By: CLAUDETTE EATON Order Number: [id number] Reading MD: Harrison Peterson Measurements Intervals [place] Rate: 136 P: 67 TN: 133 QRS: 66 QRSD: 93 T: -90 QT: 286 QTc: 431 Interpretive Statements Sinus tachycardia Probable left atrial enlargement Borderline repolarization abnormality Electronically Signed On 12-08-2024 20:57:31 PDT by Harrison Peterson Please click the below link to view image of tracing.
[2024-12-06] MEDS: SODIUM CHLORIDE 0.9% 1,000 ML IV SCH (09:45)
[2024-12-06] MEDS ORDERED: HALOPERIDOL LACTATE 5 MG/ML INJ VIAL IM PRN ×2 (09:45→13:45)
--- NOTE | 2024-12-06 10:15 | DVHPN2 ---
Progress Note - Dictate Date Seen: Dec 06, 2024 Medical Necessity Reason Pt with a Central, PICC or Fol: Yes The following are medically ne: Central Line, Snow Catheter Reason for snow catheter: Strict I&O Subjective Mr. Kalyn Carmona is a 54 years old right-handed gentleman with a history of hypertension, he came to the [facility] on 11/30/2024 with a chief company of headache and seizure activity. I have seen and examined the patient, I have discussed with his nurse, in the room. he is extubated, awake, two point restraint, he was respond to verbal stimuli, but only mumble a few words RN: He was agitated, combative Testicle sterile, 12/02/2024: 187 UDS, 11/30/2024: Negative Plasma alcohol, 12/01/2024: 3.5 Urinalysis, 12/01/2024: WBC: 2, urine leukocyte esterase: Negative ABG, 12/01/2024 1900: Unremarkable WBC/HB/PLT/MCV, 12/01/2024: 7.2/12.9/387/78.8 BUN/CR, 12/01/2024: 11/1.53 Prolactin, 12/01/2024 14:55: 29.71, 12/02/24 11 10: 21.78 EEG, 12/02/2024: mildly abnormal reported he was on testosterone replacement treatment and he had high testosterone level in the recent blood tests Chest x-ray, 12/01/2024 17:01: Pulmonary venous congestion. (The endotracheal tube (ETT) is in satisfactory position) MRI head, 12/01/2024: No acute infarct, intracranial hemorrhage, mass effect, or hydrocephalus (No evidence of acute or remote infarct) vital signs Vital Sign Date Time Temp Pulse Resp B/P (MAP) Pulse Ox O2 Delivery O2 Flow Rate FiO2 12/06/24 06:00 106 16 154/96 (115) 97 12/06/24 06:00 Nasal Cannula* 2 28 12/06/24 04:00 98.5 98.5 Total Intake and Output 12/05/24 12/05/24 12/06/24 15:00 23:00 07:00 Intake Total 1300 ml 1000 ml 1500 ml Output Total 1900 ml 3850 ml Balance 1300 ml -900 ml -2350 ml medications Current Medications Medications Dose Ordered Sig/Tanya Route Start Time Stop Time Status Last Admin Dose Admin Tamsulosin HCl 0.4 mg QPM PO 11/30/24 19:42 12/04/24 17:25 0.4 MG Propofol 100 ml @ 2.778 mls/ hr Q24H IV 12/01/24 16:45 12/01/24 16:37 2.778 MLS/HR Midazolam HCl 50 ml @ 1 mls/hr Q24H IV 12/01/24 16:45 12/05/24 00:56 4 MLS/HR Fentanyl Citrate 250 ml @ 2.5 mls/hr Q24H IV 12/01/24 16:45 12/04/24 00:48 15 MLS/HR Norepinephrine Bitartrate 250 ml @ 3.75 mls/hr Q24H IV 12/01/24 19:45 UNV Pantoprazole Sodium 40 mg DAILY IV 12/01/24 20:16 12/06/24 09:03 40 MG Norepinephrine Bitartrate 250 ml @ 3.75 mls/hr Q24H IV 12/01/24 20:15 12/02/24 11:34 7.5 MLS/HR Enoxaparin Sodium 40 mg DAILY@1800 SC 12/01/24 20:19 12/05/24 18:09 40 MG Ceftriaxone Sodium 50 ml @ 100 mls/hr DAILY@09 IV 12/02/24 09:00 12/06/24 09:03 100 MLS/HR Azithromycin 250 ml @ 125 mls/hr DAILY@2200 IV 12/02/24 22:00 12/05/24 22:01 125 MLS/HR Lorazepam 1 mg Q5MINP PRN IV 12/01/24 21:45 Enteral Nutritional Formula 1,000 ml 30ML/HR GT 12/02/24 10:00 12/03/24 03:10 1,000 ML Acetaminophen 650 mg Q6HP PRN GT 12/03/24 03:00 12/04/24 09:24 650 MG Dexmedetomidine HCl 400 mcg/ Dextrose 100 ml @ 4.63 mls/hr [id number] IV 12/03/24 17:45 12/05/24 05:46 6.945 MLS/HR Vancomycin HCl 0 ml @ 0 mls/hr UD IV 12/04/24 11:45 Vancomycin HCl 250 ml @ 200 mls/hr Q18H IV 12/04/24 13:00 12/06/24 01:03 200 MLS/HR Hydralazine HCl 10 mg Q6HP PRN IV 12/05/24 22:30 12/05/24 22:34 10 MG Morphine Sulfate 2 mg Q4HPRN PRN IV 12/06/24 00:15 12/06/24 04:17 2 MG Sodium Chloride 1,000 ml @ 100 mls/hr Q10H IV 12/06/24 09:45 UNV Haloperidol Lactate 2.5 mg Q8HP PRN IM 12/06/24 09:45 UNV objective The patient is well-nourished and well-developed with no distress MENTAL STATUS: Subjective CRANIAL NERVES: Pupils are equal round and reactive to light briskly, normal external eye movement, sensation and motor examination in the lateral trigeminal nerve distribution: ok, no facial weakness. SENSATION: responses to pain stimuli. MOTOR: Normal tone in the upper and lower extremity. Normal muscle bulk. No fasciculations. He moves the arms and legs REFLEXES: Deep tendon reflexes are symmetrical. No pathological reflexes. CEREBELLAR/COORDINATION: Deferred GAIT/STATION: deferred. 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 Metabolic encephalopathy Toxic encephalopathy Acute respiratory failure, resolved Left-sided weakness, MRI brain showed no evidence of stroke Elevated testosterone level (overdosing) Assessment/Plan Monitoring Supportive treatment Telemetry Follow up lab tests Stabilize vitals Respiratory support Discontinue Keppra Preventive seizure medication is not indicated Ativan for seizure breakthrough Haldol for behavioral control DVT prophylaxis/SCD GI prophylaxis/Protonix More recommendation per clinical course This medical document was created using an electronic medical record system with [employer] dictation system. Although this document has been carefully reviewed, there may still be some phonetic and typographical errors. These areas are purely typographical due to imperfections of the software programs, and do not reflect any compromise in the patient's medical care Prognosis poor Dietary Evaluation Review Comments: 1. Disagree with current EN regimen, change to Vital AF 1.2 @ 65 ml/hr; begin new formula at tolerated rate of 35 ml/hr, advance by 10 ml Q4 hrs to new goal-rate of 65 ml/hr continuously 2. Provide free water flushes of 30 ml Q6 hrs (120 ml total); adjust PRN 3. Monitor BMP/lytes and replete to WNL TF Provision: TF at goal to provide 1560 ml total volume, 1872 kcal, 117 gm pro, 8 gm fiber, 1265 ml H20 (meets 100% est. kcal needs, 100% est. pro needs) Expected Outcomes/Goals: Adequate energy/protein intake meeting needs, improved clinical status. Plan discussed with: Other KOBY ANDERSON MD Dec 06, 2024 10:15
[2024-12-06] MEDS: HALOPERIDOL LACTATE 5 MG/ML INJ VIAL IM PRN (10:55)
--- NOTE | 2024-12-06 13:44 | DVHPN2 ---
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 seen by me today during rounds, extubated yesterday, combative, aggressive towards staff, spitting to me and team today. transfer to telemetry. haldol for agitation, starting klonazepam. 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 Anemia microcytic hypochromic HEIKE VMN vs rhabdo ISO seizure Low concern for meningoencephalitis extubated, maintain spo2 >94 c/w ceft azithro Neuro consult appreciated keppra load followed by maintenance, d/cd haldol PRN start losartan, klonazepam PRN ativan seizure condition critical prognosis poor diet hold dvt ppx lovenox gi ppx protonix dc'd critical care time 39 minutes Plan discussed with: Other My Orders Orders - CLAUDETTE EATON MD Procedure Category Date Status Time Transfer Orders XFER 12/06/24 Transmitted 09:21 * Swallow Request ST 12/06/24 Transmitted 12:01 Transfer Orders XFER 12/06/24 Transmitted 13:07 Losartan Tablet PHA 12/06/24 In Process (Cozaar Tablet) 13:45 Losartan Tablet PHA 12/07/24 In Process (Cozaar Tablet) 10:00 Clonazepam Tablet PHA 12/06/24 In Process (Klonopin Tablet) 22:00 Date of Service: Dec 06, 2024 Billing Provider: CLAUDETTE EATON MD Common Visit Codes: 28795-[id number] CARE 30-74 MIN CLAUDETTE EATON MD Dec 06, 2024 13:44
[2024-12-06] MEDS: LOSARTAN POTASSIUM 25 MG TAB PO ONE (13:45)
[2024-12-06] MEDS: ENALAPRILAT 1.25 MG/ML-1ML VIAL IV SCH (18:39)
--- NOTE | 2024-12-06 20:02 | DVHINCON2 ---
Date of Service if different f: Dec 06, 2024 Time of Service: 19:26 Consultation ([facility]) Consulting Physician: RANDY GATICA MD Labs Laboratory Tests Test 11/30/24 14:49 11/30/24 20:11 12/01/24 05:11 12/01/24 14:55 Troponin I High Sensitivity 19 ng/L (</=54) Thyroid Stimulating Hormone (TSH) 2.11 uIU/mL (0.55-4.78) Urine Opiates Screen Neg (NEGATIVE) Urine Fentanyl Screen Neg (NEGATIVE) Urine Barbiturates Screen Neg (NEGATIVE) Urine Phencyclidine Screen Neg (NEGATIVE) Urine Amphetamines Screen Neg (NEGATIVE) Urine Benzodiazepines Screen Neg (NEGATIVE) Urine Cocaine Screen Neg (NEGATIVE) Urine Cannabinoids Screen Neg (NEGATIVE) Plasma/Serum Blood Alcohol 3.5 mg/dL (<10) Prothrombin Time 10.7 sec (9.3-11.8) Prothromb Time International Ratio 1.01 (0.9-1.15) Iron Level 16 ug/dL (65-175) Total Iron Binding Capacity 365 ug/dL (250-425) Percent Iron Saturation 4.4 % (20-55) Ferritin 10.7 ng/mL (22-322) Test 12/01/24 17:38 12/02/24 03:20 12/02/24 06:49 12/02/24 11:10 Urine Color Light-yellow (Yellow) Urine Clarity Clear (Clear) Urine pH 5.5 (5.0-9.0) Urine Specific [place] 1.019 (1.001-1.035) Urine Protein 1+ (Negative) Urine Ketones Trace (Negative) Urine Blood Trace /uL (Negative) Urine Nitrite Negative (Negative) Urine Bilirubin Negative (Negative) Urine Urobilinogen Normal mg/dL (Negative) Urine Leukocyte Esterase Negative /uL (Negative) Urine RBC 1 /hpf (0 - 3) Urine Microscopic WBC 2 /HPF (0-3) Urine Squamous Epithelial Cells None seen /hpf (<5) Urine Bacteria None seen /hpf (None Seen) Urine Mucus Few (None Seen) Urine Glucose Normal mg/dL (Normal) Lactic Acid Level 0.9 mmol/L (0.4-2.0) Creatine Kinase 567 U/L (46-171) Blood Gas Inspiratory Pressure 19.0 Bl Gas Inspiratory/Expiratory Ratio 1:2.7 Specimen Drawn By (Blood Gas) ember rt Prolactin 21.78 ng/mL (2.1-17.7) Testosterone Level 187 ng/dL (264-916) Test 12/04/24 03:18 12/05/24 03:10 12/05/24 06:38 12/05/24 14:43 Phosphorus Level 3.4 mg/dL (2.4-5.1) White Blood Count 10.5 10^3/uL (4.4-10.8) Red Blood Count 3.85 10^6/uL (4.5-5.90) Hemoglobin 9.8 g/dL (13.5-17.5) Hematocrit 29.4 % (41.0-53.0) Mean Corpuscular Volume 76.3 fL (80.0-100.0) Mean Corpuscular Hemoglobin 25.4 pg (28.0-32.0) Mean Corpuscular Hemoglobin Concent 33.4 g/dL (32.0-36.0) Red Cell Distribution Width 17.2 % (11.8-14.3) Platelet Count 278 10^3/uL (140-450) Mean Platelet Volume 7.4 fL (6.9-10.8) Neutrophils (%) (Auto) 84.9 % (37.0-80.0) Lymphocytes (%) (Auto) 6.4 % (10.0-50.0) Monocytes (%) (Auto) 7.1 % (0.0-12.0) Eosinophils (%) (Auto) 1.2 % (0.0-7.0) Basophils (%) (Auto) 0.4 % (0.0-2.0) Neutrophils # (Auto) 8.9 10 ^3/uL (1.6-8.6) Lymphocytes # (Auto) 0.7 10 ^3/uL (0.4-5.4) Monocytes # (Auto) 0.7 10 ^3/uL (0-1.3) Eosinophils # (Auto) 0.1 10 ^3/uL (0-0.8) Basophils # (Auto) 0 10 ^3/uL (0-0.2) Nucleated Red Blood Cells 0.0 % Blood Gas Set Respiration Rate 18.0 Blood Gas Tidal Volume 500.0 Blood Gas Specimen Type Arterial Blood Gas Sample Site Right radial Blood Gas Patient Temperature 37.0 Arterial Blood Date Drawn [id number] Arterial Blood pH 7.388 (7.350-7.450) Arterial Blood Partial Pressure CO2 43.5 mmHg (35.0-48.0) Arterial Blood Partial Pressure O2 99.7 mmHg (83.0-108.0) Arterial Blood HCO3 25.6 mmol/L (21.0-28.0) Arterial Blood Oxygen Saturation 97.0 % (94.0-98.0) Arterial Blood Base Excess 0.5 mmol/L (-2.0-3.0) Arterial Blood Oxyhemoglobin 96.3 % (94.0-98.0) Arterial Blood Carboxyhemoglobin 0.4 % (0.5-1.5) Arterial Blood Methemoglobin 0.3 % (0.0-1.5) Nolan Test Modified Blood Gas Total Hemoglobin 11.10 g/dL (13.5-17.5) Blood Gas Modality Vent - cpap Blood Gas Spontaneous Rate 16 FiO2 % 30.0 Blood Gas Spontaneous Tidal Volume 600 Blood Gas Pressure Support 8 Blood Gas PEEP or CPAP 5.0 Test 12/05/24 23:28 12/05/24 23:32 12/06/24 18:36 Sodium Level 141 mmol/L (136-145) Potassium Level 3.8 mmol/L (3.5-5.1) Chloride Level 107 mmol/L (98-107) Carbon Dioxide Level 25 mmol/L (20-31) Anion Gap 9 (5-15) Blood Urea Nitrogen < 5 mg/dL (9-23) Creatinine 0.96 mg/dL (0.700-1.30) Glomerular Filtration Rate Calc 95 mL/min (>90) BUN/Creatinine Ratio 5.2 (10.0-20.0) Serum Glucose 86 mg/dL (74-106) Calcium Level 9.5 mg/dL (8.7-10.4) Magnesium Level 1.9 mg/dL (1.6-2.6) Total Bilirubin 0.5 mg/dL (0.2-1.0) Aspartate Amino Transf (AST/SGOT) 45 U/L (13-40) Alanine Aminotransferase (ALT/SGPT) 26 U/L (7-40) Alkaline Phosphatase 38 U/L (46-116) Total Protein 6.9 g/dL (5.7-8.2) Albumin 4.2 g/dL (3.2-4.8) Bedside Glucose 78 mg/dl (70-106) Microbiology Date/Time Source Procedure Growth Status 12/04/24 12:46 Blood Blood Culture - Preliminary NO GROWTH AFTER 48 HOURS OF INCUBATION. Resulted 12/01/24 17:38 Urine - [place] Urine Culture - Final Complete 12/01/24 16:00 Sputum Gram Stain - Final Complete 12/01/24 16:00 Sputum Respiratory Culture - Final Complete Appearance: Stated age Psychomotor activity: Lethargic Behavioral: Cooperative Eye contact: Limited Speech: Soft Affect: Blunted Mood: Neutral Thought processes: Linear/Goal-directed Thought content: WNL Suicidal ideations: Absent Homicidal ideations: Absent Orientation: Person, Place Memory intact: Recent Intellect: Average Abstractability: WNL Concentration: Limited Attention: Limited Judgement: WNL Insight: Fair Vitals Vital Signs Date Time Temp Pulse Resp B/P (MAP) Pulse Ox O2 Delivery O2 Flow Rate FiO2 12/06/24 18:39 122/84 12/06/24 18:00 17 100 Nasal Cannula* 2 28 12/06/24 18:00 101 12/06/24 16:00 98.7 98.7 Current medications Current Medications Medications Dose Ordered Sig/Tanya Route Start Time Stop Time Status Last Admin Dose Admin Tamsulosin HCl 0.4 mg QPM PO 11/30/24 19:42 12/04/24 17:25 0.4 MG Norepinephrine Bitartrate 250 ml @ 3.75 mls/hr Q24H IV 12/01/24 19:45 UNV Enoxaparin Sodium 40 mg DAILY@1800 SC 12/01/24 20:19 12/06/24 18:47 40 MG Ceftriaxone Sodium 50 ml @ 100 mls/hr DAILY@09 IV 12/02/24 09:00 12/06/24 09:03 100 MLS/HR Azithromycin 250 ml @ 125 mls/hr DAILY@2200 IV 12/02/24 22:00 12/05/24 22:01 125 MLS/HR Enteral Nutritional Formula 1,000 ml 30ML/HR GT 12/02/24 10:00 12/03/24 03:10 1,000 ML Acetaminophen 650 mg Q6HP PRN GT 12/03/24 03:00 12/04/24 09:24 650 MG Vancomycin HCl 0 ml @ 0 mls/hr UD IV 12/04/24 11:45 Vancomycin HCl 250 ml @ 200 mls/hr Q18H IV 12/04/24 13:00 12/06/24 18:47 200 MLS/HR Morphine Sulfate 2 mg Q4HPRN PRN IV 12/06/24 00:15 12/06/24 04:17 2 MG Sodium Chloride 1,000 ml @ 100 mls/hr Q10H IV 12/06/24 09:45 12/06/24 12:46 100 MLS/HR Losartan Potassium 25 mg DAILY PO 12/07/24 10:00 Clonazepam 0.5 mg BID PO 12/06/24 22:00 Haloperidol Lactate 5 mg Q8HP PRN IM 12/06/24 13:45 Enalaprilat 1.25 mg Q6HR IV 12/06/24 18:00 12/06/24 18:39 1.25 MG Treatment plan discussed: With staff, Family Medication adjusted: No Labs ordered: No Psychotherapy provided: No Type: Voluntary History of Present Illness Reason for Consult : psychiatric evaluation PSYCHIATRIST HPI: The patient was seen and evaluated at [facility] via telepsychiatry platform. 54 yr old male was admitted for seizures 12/01 and was intubated from 12/01 to 12/05. After intubation, he was aggressive with staff requiring sedation. Referral was requested for behavioral changes. He had been admitted for possible seizure activity. The neurology felt the EEG was normal so did not feel it was epilepsy. He had been on androgel and had a high testosterone level around 1400 seven months ago. He had some heartburn and tingling in his fingers prior to admission over the last 3-4 weeks. He also had been "zoning out" occasionally. He had a really bad headache last week which he took sudafed and migraine medication for. He had some difficulty focusing since having the headaches. Just prior to his medication, he noticed some change in his body where he couldn't get his body to move when he wanted it to. At that point, he went into a convulsion which last a few minutes. He was unresponsive for a few minutes and out of it as it came through. He had four seizures back to back. He reported that he has good work and gets along with his coworkers. He is not under much stress and feels happy in the marriage. He has fairly low stress and no noted overwhelming stress. As far as the aggression following his extubation, he reported that he was confused and felt the nurse was trying to kiss him (while fixing his IV lines), so had been aggressive. He noted he feels calmer now and does not feel like harming others. He has no history of seizures or neurological issues prior to these episodes. He denied having homicidal ideation, and denied having auditory and visual hallucinations. Past Psychiatric History : No history of hospitalizations, treatment or suicide attempts. Past Medical History : TBI s/p MCA in 2021, low testosterone Current medications: testosterone gel. Losartan, hiccup medication (Had been on thorazine for hiccups in the past). none Substance use: Social alcohol use. Denied use of other substances. Social History : Lives in [place] with . since Jul 01, but together the past couple years. Previously 26 yrs. Two children. Works in construction. Diagnosis: UNSPECIFIED MOOD DISORDER; Rule out ICU delirium Formulation: This 54 yr old male appears to suffer from some behavioral changes. His convulsions may be psychogenic, but he does not appear to have any major stressors which would lead to a converted symptom (such as a seizure). He may have been aggressive in the ICU due to ICU delirium as it is common to be disoriented, confused and delirious after being intubated a few days. Plan: 1. Recommend checking testosterone levels to ensure it is back to normal range. 2. Legal-voluntary. 3. Medications: if further aggression occurs, I recommend addressing it with medications according to ICU delirium protocol. 4. Case discussed with [facility] [employer] [employer] [employer] Bertha. 5. Please recontact psychiatry for further follow up or reevaluation. Assessment/Diagnosis/Plan Reviewed: Consults, Labs, Medications, Previous Orders RANDY GATICA MD Dec 06, 2024 19:59
[2024-12-06] MEDS: clonazePAM 0.5 MG TAB PO SCH (22:00)
[2024-12-07] VITALS (11 sets, daily range): BP systolic 118–135; BP diastolic 61–85; PULSE 78–104; RESP 17–20; TEMP 97.8–98.2; O2SAT 95–100
[2024-12-07] MEDS: VANCOMYCIN 1GM/250ML KIT 250 ML IV SCH (02:10)
[2024-12-07 06:04] LABS: Basophils # (auto) 0 10 ^3/uL (0-0.2); Basophils % (auto) 0.5 % (0.0-2.0); Eosinophils # (auto) 0.2 10 ^3/uL (0-0.8); Eosinophils % (auto) 2.1 % (0.0-7.0); Hematocrit 35.4 % (41.0-53.0); Hemoglobin 11.6 g/dL (13.5-17.5); Lymphocytes # (auto) 0.6 10 ^3/uL (0.4-5.4); Lymphocytes % (auto) 7.5 % (10.0-50.0); Mean Corpuscular Hgb Conc. 32.9 g/dL (32.0-36.0); Mean Corpuscular Volume 76.1 fL (80.0-100.0); Neutrophils # (auto) 6.2 10 ^3/uL (1.6-8.6); Neutrophils % (auto) 77.9 % (37.0-80.0); Platelet Count (auto) 373 10^3/uL (140-450); Red Blood Cells 4.65 10^6/uL (4.5-5.90)
[2024-12-07 06:16] LABS: Anion Gap 8 (5-15); Calcium 9.7 mg/dL (8.7-10.4); Carbon Dioxide 25 mmol/L (20-31); Chloride 105 mmol/L (98-107); Potassium 3.7 mmol/L (3.5-5.1); Sodium 138 mmol/L (136-145)
[2024-12-07 06:21] LABS: Glucose 83 mg/dL (74-106)
[2024-12-07 06:22] LABS: BUN/Creatinine Ratio 7.3 (10.0-20.0)
[2024-12-07 06:25] LABS: Blood Urea Nitrogen 7 mg/dL (9-23)
[2024-12-07] MEDS: LOSARTAN POTASSIUM 25 MG TAB PO SCH (09:33)
--- NOTE | 2024-12-07 09:42 | ECG ---
[facility] Test Date: 2024-12-06 Test Time: 11:18:08 Pat Name: NILESH CORRALES Department: icu Room: [facility]6T A Gender: M Lithopone Charger: Felix Ford : 1970 Requested By: ASHANTI CHAN Order Number: [id number] Reading MD: Harrison Peterson Measurements Intervals [place] Rate: 99 P: 70 WA: 140 QRS: 80 QRSD: 93 T: -7 QT: 349 QTc: 448 Interpretive Statements Sinus tachycardia Borderline repolarization abnormality Minimal ST elevation, anterior leads Baseline wander in lead(s) I,II,III,aVR,aVL,aVF,V1,V3 Electronically Signed On 12-08-2024 20:58:57 PDT by Harrison Peterson Please click the below link to view image of tracing.
--- NOTE | 2024-12-07 13:47 | DVHPN2 ---
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 seen by me today during rounds, more alert and oriented. seen by psych yesterday. discussed with neuro, concern for PNES. family bedside told me afterwards patient's mother recently and wondering if its safe to tell him. informed that since we have concern for PNES, stress might cause another episode. 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 Anemia microcytic hypochromic HEIKE VMN vs rhabdo ISO seizure Low concern for meningoencephalitis extubated, maintain spo2 >94 c/w ceft azithro Neuro consult appreciated keppra load followed by maintenance, d/cd haldol PRN start losartan, klonazepam PRN ativan seizure repeat speech eval condition critical prognosis poor diet hold dvt ppx lovenox gi ppx protonix dc'd Plan discussed with: Patient, Spouse My Orders Orders - CLAUDETTE EATON MD Procedure Category Date Status Time Haloperidol Lactate PHA 12/06/24 In Process Injection (Haldol) 13:45 *Tele Psych Consult CONS 12/06/24 Transmitted 13:44 Npo (Nothing By DIET 12/06/24 Transmitted Mouth) Diet Dinner Enalaprilat Injection PHA 12/06/24 In Process (Vasotec Injection 18:00 Date of Service: Dec 07, 2024 Billing Provider: CLAUDETTE EATON MD Common Visit Codes: [id number] INP/OBS CARE(HIGH) CLAUDETTE EATON MD Dec 07, 2024 13:47
--- NOTE | 2024-12-07 16:51 | DVHPN2 ---
Progress Note - Dictate Date Seen: Dec 07, 2024 Medical Necessity Reason Pt with a Central, PICC or Fol: Yes The following are medically ne: Central Line, Snow Catheter Reason for snow catheter: Strict I&O Subjective Mr. Kalyn Carmona is a 54 years old right-handed gentleman with a history of hypertension, he came to the [facility] on 11/30/2024 with a chief company of headache and seizure activity. I have seen and examined the patient, I have discussed with his nurse, in the room. He was alert and fully oriented, he reports that he was remember the 1st convulsive seizure at home, but neither once in the hospital Testicle sterile, 12/02/2024: 187 UDS, 11/30/2024: Negative Plasma alcohol, 12/01/2024: 3.5 Urinalysis, 12/01/2024: WBC: 2, urine leukocyte esterase: Negative ABG, 12/01/2024 1900: Unremarkable WBC/HB/PLT/MCV, 12/01/2024: 7.2/12.9/387/78.8 BUN/CR, 12/01/2024: 11/1.53 Prolactin, 12/01/2024 14:55: 29.71, 12/02/24 11 10: 21.78 EEG, 12/02/2024: mildly abnormal reported he was on testosterone replacement treatment and he had high testosterone level in the recent blood tests Chest x-ray, 12/01/2024 17:01: Pulmonary venous congestion. (The endotracheal tube (ETT) is in satisfactory position) MRI head, 12/01/2024: No acute infarct, intracranial hemorrhage, mass effect, or hydrocephalus (No evidence of acute or remote infarct) vital signs Vital Sign Date Time Temp Pulse Resp B/P (MAP) Pulse Ox O2 Delivery O2 Flow Rate FiO2 12/07/24 13:00 98.1 88 20 135/85 (102) 98 98.1 12/07/24 08:00 Nasal Cannula* 2 28 Total Intake and Output 12/06/24 12/06/24 12/07/24 15:00 23:00 07:00 Intake Total 783.33 ml 700 ml 600 ml Output Total 2850 ml 800 ml Balance 783.33 ml -2150 ml -200 ml medications Current Medications Medications Dose Ordered Sig/Tanya Route Start Time Stop Time Status Last Admin Dose Admin Tamsulosin HCl 0.4 mg QPM PO 11/30/24 19:42 12/04/24 17:25 0.4 MG Norepinephrine Bitartrate 250 ml @ 3.75 mls/hr Q24H IV 12/01/24 19:45 UNV Enoxaparin Sodium 40 mg DAILY@1800 SC 12/01/24 20:19 12/06/24 18:47 40 MG Ceftriaxone Sodium 50 ml @ 100 mls/hr DAILY@09 IV 12/02/24 09:00 12/07/24 09:21 100 MLS/HR Azithromycin 250 ml @ 125 mls/hr DAILY@2200 IV 12/02/24 22:00 12/06/24 22:03 125 MLS/HR Enteral Nutritional Formula 1,000 ml 30ML/HR GT 12/02/24 10:00 12/03/24 03:10 1,000 ML Acetaminophen 650 mg Q6HP PRN GT 12/03/24 03:00 12/04/24 09:24 650 MG Vancomycin HCl 0 ml @ 0 mls/hr UD IV 12/04/24 11:45 Morphine Sulfate 2 mg Q4HPRN PRN IV 12/06/24 00:15 12/06/24 04:17 2 MG Sodium Chloride 1,000 ml @ 100 mls/hr Q10H IV 12/06/24 09:45 12/07/24 00:13 100 MLS/HR Losartan Potassium 25 mg DAILY PO 12/07/24 10:00 Clonazepam 0.5 mg BID PO 12/06/24 22:00 Haloperidol Lactate 5 mg Q8HP PRN IM 12/06/24 13:45 Enalaprilat 1.25 mg Q6HR IV 12/06/24 18:00 12/07/24 11:54 1.25 MG Vancomycin HCl 250 ml @ 200 mls/hr Q8HR@0200,1000,1800 IV 12/07/24 02:00 12/07/24 11:09 200 MLS/HR objective The patient is well-nourished and well-developed with no distress MENTAL STATUS: Subjective CRANIAL NERVES: Pupils are equal round and reactive to light briskly, normal external eye movement, sensation and motor examination in the lateral trigeminal nerve distribution: ok, no facial weakness. SENSATION: responses to pain stimuli. MOTOR: Normal tone in the upper and lower extremity. Normal muscle bulk. No fasciculations. He moves the arms and legs REFLEXES: Deep tendon reflexes are symmetrical. No pathological reflexes. CEREBELLAR/COORDINATION: No ataxia GAIT/STATION: deferred. 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 Although this document has been carefully reviewed, there may still be some phonetic and typographical errors. These areas are purely typographical due to imperfections of the software programs, and do not reflect any compromise in the patient's medical care Prognosis poor Dietary Evaluation Review Comments: 1. Disagree with current EN regimen, change to Vital AF 1.2 @ 65 ml/hr; begin new formula at tolerated rate of 35 ml/hr, advance by 10 ml Q4 hrs to new goal-rate of 65 ml/hr continuously 2. Provide free water flushes of 30 ml Q6 hrs (120 ml total); adjust PRN 3. Monitor BMP/lytes and replete to WNL TF Provision: TF at goal to provide 1560 ml total volume, 1872 kcal, 117 gm pro, 8 gm fiber, 1265 ml H20 (meets 100% est. kcal needs, 100% est. pro needs) Expected Outcomes/Goals: Adequate energy/protein intake meeting needs, improved clinical status. Plan discussed with: Patient, Spouse, Other KOBY ANDERSON MD Dec 07, 2024 16:51
[2024-12-07] MEDS: VANCOMYCIN 1GM/250mL NS or D5W KIT IV SCH (20:50)
[2024-12-07] MEDS ORDERED: VANCOMYCIN 1.25gm/250mL PREMIX or KIT IV SCH (21:00)
[2024-12-08 05:00] VITALS: BP 128/79; PULSE 86; RESP 20; TEMP 98.3; O2SAT 97
[2024-12-08 06:25] LABS: Calcium 9.4 mg/dL (8.7-10.4); Chloride 106 mmol/L (98-107); Potassium 3.7 mmol/L (3.5-5.1); Sodium 140 mmol/L (136-145)
[2024-12-08 06:26] LABS: Anion Gap 8 (5-15); Carbon Dioxide 26 mmol/L (20-31)
[2024-12-08 06:31] LABS: BUN/Creatinine Ratio 9.6 (10.0-20.0); Blood Urea Nitrogen 9 mg/dL (9-23); Glucose 82 mg/dL (74-106)
[2024-12-08 08:00] VITALS: PULSE 95
[2024-12-08 08:10] VITALS: PULSE 95; RESP 18; O2SAT 95
[2024-12-08] MEDS ORDERED: CLON0.5T3 PO (08:58)
[2024-12-08 09:00] VITALS: BP 117/79; PULSE 95; RESP 20; TEMP 97.7; O2SAT 96
--- NOTE | 2024-12-08 11:38 | DVHDS2 ---
Discharge Summary Date of Admission Nov 30, 2024 at 19:30 Date of Discharge: Dec 08, 2024 Labs/Diagnostic Data: Laboratory Results Test 12/08/24 04:47 12/07/24 19:36 12/07/24 05:13 12/05/24 23:32 Sodium Level 140 mmol/L (136-145) Potassium Level 3.7 mmol/L (3.5-5.1) Chloride Level 106 mmol/L (98-107) Carbon Dioxide Level 26 mmol/L (20-31) Anion Gap 8 (5-15) Blood Urea Nitrogen 9 mg/dL (9-23) Creatinine 0.94 mg/dL (0.700-1.30) Glomerular Filtration Rate Calc 98 mL/min (>90) BUN/Creatinine Ratio 9.6 (10.0-20.0) Serum Glucose 82 mg/dL (74-106) Calcium Level 9.4 mg/dL (8.7-10.4) Vancomycin Level Trough 8.0 ug/mL (5-10) White Blood Count 8.0 10^3/uL (4.4-10.8) Red Blood Count 4.65 10^6/uL (4.5-5.90) Hemoglobin 11.6 g/dL (13.5-17.5) Hematocrit 35.4 % (41.0-53.0) Mean Corpuscular Volume 76.1 fL (80.0-100.0) Mean Corpuscular Hemoglobin 25.0 pg (28.0-32.0) Mean Corpuscular Hemoglobin Concent 32.9 g/dL (32.0-36.0) Red Cell Distribution Width 18.0 % (11.8-14.3) Platelet Count 373 10^3/uL (140-450) Mean Platelet Volume 7.0 fL (6.9-10.8) Neutrophils (%) (Auto) 77.9 % (37.0-80.0) Lymphocytes (%) (Auto) 7.5 % (10.0-50.0) Monocytes (%) (Auto) 12.0 % (0.0-12.0) Eosinophils (%) (Auto) 2.1 % (0.0-7.0) Basophils (%) (Auto) 0.5 % (0.0-2.0) Neutrophils # (Auto) 6.2 10 ^3/uL (1.6-8.6) Lymphocytes # (Auto) 0.6 10 ^3/uL (0.4-5.4) Monocytes # (Auto) 1.0 10 ^3/uL (0-1.3) Eosinophils # (Auto) 0.2 10 ^3/uL (0-0.8) Basophils # (Auto) 0 10 ^3/uL (0-0.2) Nucleated Red Blood Cells 0.0 % POC Glucose 78 mg/dl (70-106) Test 12/05/24 23:28 12/05/24 14:43 12/05/24 06:38 12/04/24 03:18 Magnesium Level 1.9 mg/dL (1.6-2.6) Total Bilirubin 0.5 mg/dL (0.2-1.0) Aspartate Amino Transferase (AST) 45 U/L (13-40) Alanine Aminotransferase (ALT) 26 U/L (7-40) Alkaline Phosphatase 38 U/L (46-116) Total Protein 6.9 g/dL (5.7-8.2) Albumin 4.2 g/dL (3.2-4.8) Blood Gas Specimen Type Arterial Blood Gas Sample Site Right radial Blood Gas Patient Temperature 37.0 Arterial Blood Date Drawn [id number] Arterial Blood pH 7.388 (7.350-7.450) Arterial Blood Partial Pressure CO2 43.5 mmHg (35.0-48.0) Arterial Blood Partial Pressure O2 99.7 mmHg (83.0-108.0) Arterial Blood HCO3 25.6 mmol/L (21.0-28.0) Arterial Blood Oxygen Saturation 97.0 % (94.0-98.0) Arterial Blood Base Excess 0.5 mmol/L (-2.0-3.0) Arterial Blood Oxyhemoglobin 96.3 % (94.0-98.0) Arterial Blood Carboxyhemoglobin 0.4 % (0.5-1.5) Arterial Blood Methemoglobin 0.3 % (0.0-1.5) Nolan Test Modified Blood Gas Total Hemoglobin 11.10 g/dL (13.5-17.5) Blood Gas Modality Vent - cpap Blood Gas Spontaneous Rate 16 FiO2 % 30.0 Blood Gas Spontaneous Tidal Volume 600 Blood Gas Pressure Support 8 Blood Gas PEEP or CPAP 5.0 Blood Gas Set Respiration Rate 18.0 Blood Gas Tidal Volume 500.0 Phosphorus Level 3.4 mg/dL (2.4-5.1) Test 12/02/24 11:10 12/02/24 06:49 12/02/24 03:20 12/01/24 17:38 Prolactin 21.78 ng/mL (2.1-17.7) Testosterone Level 187 ng/dL (264-916) Blood Gas Inspiratory Pressure 19.0 Bl Gas Inspiratory/Expiratory Ratio 1:2.7 Specimen Drawn By ananyae rt Lactic Acid Level 0.9 mmol/L (0.4-2.0) Creatine Kinase 567 U/L (46-171) Urine Color Light-yellow (Yellow) Urine Clarity Clear (Clear) Urine pH 5.5 (5.0-9.0) Urine Specific [place] 1.019 (1.001-1.035) Urine Protein 1+ (Negative) Urine Ketones Trace (Negative) Urine Blood Trace /uL (Negative) Urine Nitrite Negative (Negative) Urine Bilirubin Negative (Negative) Urine Urobilinogen Normal mg/dL (Negative) Urine Leukocyte Esterase Negative /uL (Negative) Urine RBC 1 /hpf (0 - 3) Urine Microscopic WBC 2 /HPF (0-3) Urine Squamous Epithelial Cells None seen /hpf (<5) Urine Bacteria None seen /hpf (None Seen) Urine Mucus Few (None Seen) Urine Glucose Normal mg/dL (Normal) Test 12/01/24 14:55 12/01/24 05:11 11/30/24 20:11 11/30/24 14:49 Prothrombin Time 10.7 sec (9.3-11.8) Prothrombin Time INR 1.01 (0.9-1.15) Iron Level 16 ug/dL (65-175) Total Iron Binding Capacity 365 ug/dL (250-425) Percent Iron Saturation 4.4 % (20-55) Ferritin 10.7 ng/mL (22-322) Plasma/Serum Blood Alcohol 3.5 mg/dL (<10) Urine Opiates Screen Neg (NEGATIVE) Urine Fentanyl Screen Neg (NEGATIVE) Urine Barbiturates Screen Neg (NEGATIVE) Urine Phencyclidine Screen Neg (NEGATIVE) Urine Amphetamines Screen Neg (NEGATIVE) Urine Benzodiazepines Screen Neg (NEGATIVE) Urine Cocaine Screen Neg (NEGATIVE) Urine Cannabinoids Screen Neg (NEGATIVE) Troponin I High Sensitivity 19 ng/L (</=54) Thyroid Stimulating Hormone (TSH) 2.11 uIU/mL (0.55-4.78) Other Laboratory Tests 12/08/24 04:47 12/07/24 05:13 Brief Hx & Hospital Course: 54 yo M with testosterone use and chornic hiccups, admitted for seizure, rapid response was called for focal aware seizure, intubated for airway protection. After intubation patient had decreased urine output, given IVF and lasix with improvement. CK and alctate improved. 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 Patient was difficult to titrate off sedation and was combative after extubation. Safely extubated and mental status improved to baseline the next day. stable to DC home, per neurology not to use antiepileptics. follow up with neuro and vanc Condition at Discharge: Good Final Diagnosis/Problems List PNES Discharge Disposition: Home Discharge Instruct/Medications Diet: Regular Activity: No Restrictions, As Tolerated Follow Up/Referral: neuro PCP dc clinic 39 Discharge Statement: "Patient was advised to return to the ER or call 911 if any headaches, dizziness, shortness of breath, chest pain, abdominal pain, bleeding, fevers, or worsening of medical condition. Patient was counseled about treatment plan, medications, possible side effects, patientverbalized understanding. All questions were answered to the best of my ability. This discharge took greater then 30 minutes in planning, reviewing documentation, counseling the patient, and discussing with other team members." ASSESSMENT ASSESSMENT Assessment PNES Date of Service: Dec 08, 2024 Billing Provider: CLAUDETTE EATON MD Common Visit Codes: 06732-VQQ/OBS DISCH DAY >30min CLAUDETTE EATON MD Dec 08, 2024 11:38
[2024-12-08 13:00] VITALS: BP 120/77; PULSE 85; RESP 17; TEMP 97.6; O2SAT 95
[2024-12-08 14:45] VITALS: BP 120/72; PULSE 85; RESP 18; TEMP 36.8; O2SAT 95
[2024-12-09 21:06] LABS: Free Testosterone(Direct) 7.8 pg/mL (7.2-24.0)
== END 2024-12-08 16:05 | disposition home or self-care (01) | DRG 53 ==
LOC: ER 14:07 → EDBD 14:07 → OVERFLOW 19:30 → EAST 22:12 → ICU WEST 12-01 18:00 → TELE-WESTW 12-06 23:38
PROVIDERS: ADMIT Student in an Organized Health Care Education/Training Program; ATTEND Student in an Organized Health Care Education/Training Program
PROC: 0BH17EZ Insertion of Endotracheal Airway into Trachea, Via Natural or Artificial Opening (ICD-10-PCS; principal; 2024-12-01)
PROC: 5A1945Z Respiratory Ventilation, 24-96 Consecutive Hours (ICD-10-PCS; 2024-12-01)
PROC: 02HV33Z Insertion of Infusion Device into Superior Vena Cava, Percutaneous Approach (ICD-10-PCS; 2024-12-01)
DX: G40.401 Other generalized epilepsy and epileptic syndromes, not intractable, with status epilepticus (principal); J96.01 Acute respiratory failure with hypoxia; N17.0 Acute kidney failure with tubular necrosis; J69.0 Pneumonitis due to inhalation of food and vomit; M62.82 Rhabdomyolysis; D50.9 Iron deficiency anemia, unspecified; F17.200 Nicotine dependence, unspecified, uncomplicated; I10 Essential (primary) hypertension; N40.0 Benign prostatic hyperplasia without lower urinary tract symptoms; K21.9 Gastro-esophageal reflux disease without esophagitis; F39 Unspecified mood [affective] disorder; Z87.820 Personal history of traumatic brain injury; Z79.899 Other long term (current) drug therapy
CPT/HCPCS: 36415; 36556; 36600; 70450; 70496; 70498; 70551; 71045; 80048; 80053; 80202; 80307; 80320; 81001; 82550; 82565; 82728; 82805; 82962; 83540; 83550; 83605; 83735; 84100; 84146; 84402; 84403; 84443; 84484; 85025; 85610; 87040; 87070; 87086; 87205; 92507; 92610; 93005; 93306; 94002; 94003; 94640; 95819; 96361; 96365; 96375; 97110; 97116; 97163; 97530; 99291; G0378; J2405; J2470; J2704; J7060